=== PATIENT | male | born 2000 | race Caucasian/White ===

== ENCOUNTER 2020-03-14 00:26 | Observation (INO) | payer MEDICAID, SELFPAY ==
[2020-03-14] VITALS (9 sets, daily range): BP systolic 97–147; BP diastolic 46–110; PULSE 108–139; RESP 18–26; TEMP 36.6–37.1; O2SAT 92–98; BMI 25.8
--- NOTE | 2020-03-14 00:46 | PC.NURSE ---
Patient blood glucose is 319, nurse and BEAMING MACHINE OPERATOR are aware.
[2020-03-14 00:48] LABS: Glucose Point of Care 319 mg/dL (70-110)
--- NOTE | 2020-03-14 01:04 | ED_ITS ---
Documented by User: CA Altman 03/14/20 03:04 HPI - General Adult General: Chief complaint: General Medical Stated complaint: high blood sugar Time Seen by Provider: 03/14/20 00:38 Source: patient and family (mother) Mode of arrival: ambulatory Limitations: physical limitation and other (history of cerebral palsy) History of Present Illness: HPI narrative: 19-year-old male presents to the emergency department with his mother, he is wheelchair-bound, cerebral palsy from . He currently resides in a care home. His mother reports she received a phone call at 10:30 PM sincere stating Geremias's blood sugar was 513. She was advised to bring her to the emergency department as he does not have history of diabetes. She does state 1 month history of weight loss, increased thirst with urination which prompted a visit to his primary care's office today. Blood was drawn with critical results called to the provider. Reports increased agitation with placement on medication for anxiety approximately 8 months ago, Seroquel. She reports he cannot drink enough. She states experienced diarrhea past several days but none today. She denies fever or chills. Associated symptoms: Reports no associated symptoms; Deny chest pain, diaphoresis, dyspnea, headache(s), nausea, rash, palpitations or vomiting Treatments prior to arrival: none Review of Systems General: Reports: 10 or more systems reviewed and unremarkable except in HPI and below Const: Denies: fever(s), chills or diaphoresis Eyes: Denies: blurry vision or eye redness ENMT: Denies: throat pain, dental pain or disequilibrium Card: Denies: chest pain, palpitations or irregular heart rhythm Resp: Denies: dyspnea, productive cough, non-productive cough or wheezing GI: Denies: abdominal pain, nausea or vomiting : Reports: urinary frequency; Denies: dysuria Musc: Reports: muscle weakness (chronic); Denies: neck pain, back pain, joint pain, joint swelling or muscle cramps Skin/Breast: Denies: rash or pruritus Neuro: Reports: lack of coordination, difficulty walking and difficulty communicating thoughts; Denies: headache(s), weakness in extremities or behavioral changes Psych: Reports: anxiety and mood swings Brain/Lymph: Denies: easy bruising PFS ED PFSH: Medical History (Updated 03/14/20 @ 02:53 by CA Altman) Cerebral palsy Seizure disorder Severe mental handicap Wheelchair bound Surgical History (Updated 03/14/20 @ 01:14 by CA Altman) History of tonsillectomy and adenoidectomy Social History (Updated 03/14/20 @ 01:14 by CA Altman) Second hand smoke exposure: No Alcohol intake: never Substance/Drug Use: never Adopted: No Caregiver/support person: Yes Lives independently: No Household members: other Housing: Assisted Living Facility Physical Exam Const: COMMON NORMALS: no acute distress, healthy appearing, alert and well nourished EXAM LIMITATIONS: altered mental status, behavioral limitations and language barrier GENERAL APPEARANCE: cooperative, comfortable, well kempt, well developed and anxious ORIENTATION/CONSCIOUSNESS: Yes awake HENMT: COMMON NORMALS: normocephalic, atraumatic and Normal external nose present HEAD & SCALP: normal to inspection, normocephalic and atraumatic FACE & SINUS: normal facial exam and face symmetric NOSE: Normal external nose present MOUTH: moist mucous membranes abnormal Details: cracked THROAT: posterior oropharynx normal Eye: COMMON NORMALS: Equal, round and reactive pupils present and EOMs intact bilaterally GENERAL EYE: appearance normal, both eyes and all related structures PUPIL: Yes Equal, round and reactive pupils present Neck/C-Spine: COMMON NORMALS: full ROM, no lymphadenopathy and no meningeal signs GENERAL: Yes normal visual inspection and Yes trachea midline CERVICAL SPINE: Yes cervical ROM normal Lymph: LYMPHATIC: no lymphadenopathy noted Chest: COMMONS NORMALS: normal inspection of the chest and normal palpation of entire chest wall Resp: COMMON NORMALS: normal respiratory effort, No retractions, No use of accessory muscles and clear to auscultation bilaterally EFFORT & INSPECTION: No abnormal respiratory pattern, No labored and No audible wheezes AUSCULTATION: clear to auscultation bilaterally Cardio: COMMON NORMALS: regular rate, regular rhythm, S1 normal heart sound present, S2 normal heart sound present and Peripheral pulses 2+ throughout RATE: regular rate RHYTHM: regular rhythm HEART SOUNDS: S1 normal heart sound present and S2 normal heart sound present PERIPHERAL PULSES: Peripheral pulses 2+ throughout GI: COMMON NORMALS: Normal to inspection, nondistended, normoactive bowel sounds present, Soft to palpation and non-tender INSPECTION: Yes normal to inspection, No abdominal wall ecchymosis, No central obesity and No visible herniation AUSCULTATION: Yes normoactive bowel sounds PALPATION: Yes Soft to palpation : COMMON NORMALS: Yes no CVA tenderness BLADDER/KIDNEY EXAM: Yes no CVA tenderness Back/Pelvis: COMMON NORMALS: no CVA tenderness and thoracic and lumbar spine normal to inspection Extremity: COMMON NORMALS: normal to inspection, capillary refill normal, no calf tenderness and no pedal edema GENERAL: Yes normal exam except as noted Neuro: SENSORIUM/ORIENTATION: Yes alert MENINGEAL SIGNS: Yes no meningeal signs MOTOR EXAM: 5/5 motor strength present throughout Psych: APPEARANCE: Yes grossly normal and Yes well kempt ACTIVITY/MOTOR BEHAVIOR: Yes appropriate eye contact SPEECH: Yes incoherent Skin: COMMON NORMALS: no rashes or lesions noted and turgor normal GENERAL SKIN EXAM: no rashes or lesions noted and turgor normal Course Vital Signs: Vital signs: Vital Signs Pulse Rate 139 H 03/14/20 00:32 Respiratory Rate 18 03/14/20 00:32 Blood Pressure 97/76 03/14/20 00:32 Pulse Oximetry 98 03/14/20 00:32 MDM - General Adult 2 MDM Narrative: Medical decision making narrative: 19-year-old male patient with cerebral palsy, severe MR presents to the emergency department with new onset diabetes. He has exhibited weight loss, polyuria and polydipsia for approximately 1 month. Blood sugar obtain from his primary care's office today noted to be 513. Upon arrival to the ED, glucose 319. Ketones negative, anion gap 23, CO2 18, ABG with pH 7.53 metabolic alkalosis. Lips are very dry, he appears dehydrated. He has exhibited diarrhea past several days but none today. Has history of seizure disorder, no seizures noted valproic acid level within normal limits. He was received IV fluid here in the ED for hydration therapy. normal saline. Case is discussed Dr. Frye, transfer of care patient will require admission due to dehydration and new onset diabetes. Patient does reside in a long-term long term. Lab Data: Labs: Lab Results 03/14/20 03/14/20 03/14/20 Range/Units 00:44 01:10 01:10 WBC 10.8 (4.5-13.0) 10^3/ uL RBC 5.54 H (4.1-5.3) 10^6/u L Hgb 16.2 (11.7-16.6) g/dL Hct 46.9 (42.0-52.0) % MCV 84.7 (80-94) fL MCH 29.2 (28.0-34.0) pg MCHC 34.5 (30.0-36.0) g/dL RDW 13.3 (12.1-15.1) % Plt Count 222 (130-400) 10^3/c mm MPV 11.1 H (7.4-10.4) fL Neut % (Auto) 47.9 % Lymph % (Auto) 40.5 % Dent % (Auto) 10.0 % Eos % (Auto) 0.9 % Baso % (Auto) 0.5 % Neut # (Auto) 5.15 (1.8-8.0) 10^3/u L Lymph # (Auto) 4.4 (1.5-6.5) 10^3/u L Dent # (Auto) 1.1 H (0.2-0.9) 10^3/u L Eos # (Auto) 0.1 (0.0-0.8) 10^3/u L Baso # (Auto) 0.1 (0.0-0.1) 10^3/u L Nucleated RBC % (a uto) 0 % Nucleated RBCs # 0.0 /100WBC Specimen Type Sample Site ABG pH (7.35-7.45) ABG pCO2 (35-45) mmHg ABG pO2 (80.0-100.0) mmH g ABG HCO3 (22-26) mmol/L ABG O2 Saturation ABG Base Excess (-2.0-2.0) mmol/ L Jonathan Test A-a O2 Gradient (5-10) mmHg Hematocrit (42-52) % Hgb O2 Saturation (95-100) % Carboxyhemoglobin (0.4-20.1) %THgb Methemoglobin (0.4-1.5) % Total Hemoglobin (14-18) g/dL Ionized Calcium (1.1-1.4) mmol/L O2 Delivery Device FiO2 % Indirect Sales Representative ID Sodium 132 L (136-145) mmol/L Potassium 4.0 (3.5-5.1) mmol/L Chloride 95 L (98-107) mmol/L Carbon Dioxide 18 L (22-29) mmol/L Anion Gap 23.0 H (5-19) BUN 10 (6-20) mg/dL Creatinine 0.7 (0.7-1.2) mg/dL GFR Calculation 145.3 H (90-130) mL/min Glucose 326 H (65-115) mg/dL POC Glucose 319 H (70-110) mg/dL Calculated Osmolal ity 286 (285-295) mOsm/k g Calcium 10.7 H (8.5-10.5) mg/dL Total Bilirubin 0.6 (0.15-1.2) mg/dL AST 16 (0-40) U/L ALT 24 (0-41) U/L Alkaline Phosphata se 106 (40-130) IU/L Total Protein 7.3 (6.6-8.7) g/dL Albumin 4.4 (3.5-5.2) g/dL Globulin 2.9 (1.3-4.6) g/dL Urine Color (Yellow) Urine Appearance (CLEAR) Urine pH (5-7) Ur Specific Gravit y (1.005-1.030) Urine Protein (Negative) Urine Glucose (UA) (Normal) Urine Ketones (Negative) Urine Blood (Negative) Urine Nitrate (Negative) Urine Bilirubin (Negative) Urine Urobilinogen (Negative) mg/dL Ur Leukocyte Cyndie ase (Negative) Urine RBC (0-2) /hpf Urine WBC (0-5) /hpf Ur Squamous Epith Cells (0-5) /hpf Amorphous Sediment /hpf Urine Bacteria (NONE) /hpf Valproic Acid (50-100) ug/mL Serum Ketones (Negative) 03/14/20 03/14/20 03/14/20 Range/Units 01:10 01:10 01:22 WBC (4.5-13.0) 10^3/ uL RBC (4.1-5.3) 10^6/u L Hgb (11.7-16.6) g/dL Hct (42.0-52.0) % MCV (80-94) fL MCH (28.0-34.0) pg MCHC (30.0-36.0) g/dL RDW (12.1-15.1) % Plt Count (130-400) 10^3/c mm MPV (7.4-10.4) fL Neut % (Auto) % Lymph % (Auto) % Dent % (Auto) % Eos % (Auto) % Baso % (Auto) % Neut # (Auto) (1.8-8.0) 10^3/u L Lymph # (Auto) (1.5-6.5) 10^3/u L Dent # (Auto) (0.2-0.9) 10^3/u L Eos # (Auto) (0.0-0.8) 10^3/u L Baso # (Auto) (0.0-0.1) 10^3/u L Nucleated RBC % (a uto) % Nucleated RBCs # /100WBC Specimen Type Arterial Sample Site Brachial, right ABG pH 7.53 H (7.35-7.45) ABG pCO2 24.6 L (35-45) mmHg ABG pO2 70.3 L (80.0-100.0) mmH g ABG HCO3 20.4 L (22-26) mmol/L ABG O2 Saturation 96.8 ABG Base Excess -0.4 (-2.0-2.0) mmol/ L Jonathan Test N/a A-a O2 Gradient 6.2 (5-10) mmHg Hematocrit 50.0 (42-52) % Hgb O2 Saturation 95.3 (95-100) % Carboxyhemoglobin 0.9 (0.4-20.1) %THgb Methemoglobin 0.6 (0.4-1.5) % Total Hemoglobin 16.3 (14-18) g/dL Ionized Calcium 1.2 (1.1-1.4) mmol/L O2 Delivery Device Room air FiO2 21.0 % Indirect Sales Representative ID Jlg Sodium 135.0 (136-145) mmol/L Potassium 3.9 (3.5-5.1) mmol/L Chloride (98-107) mmol/L Carbon Dioxide (22-29) mmol/L Anion Gap (5-19) BUN (6-20) mg/dL Creatinine (0.7-1.2) mg/dL GFR Calculation (90-130) mL/min Glucose 345.0 H (65-115) mg/dL POC Glucose (70-110) mg/dL Calculated Osmolal ity (285-295) mOsm/k g Calcium (8.5-10.5) mg/dL Total Bilirubin (0.15-1.2) mg/dL AST (0-40) U/L ALT (0-41) U/L Alkaline Phosphata se (40-130) IU/L Total Protein (6.6-8.7) g/dL Albumin (3.5-5.2) g/dL Globulin (1.3-4.6) g/dL Urine Color (Yellow) Urine Appearance (CLEAR) Urine pH (5-7) Ur Specific Gravit y (1.005-1.030) Urine Protein (Negative) Urine Glucose (UA) (Normal) Urine Ketones (Negative) Urine Blood (Negative) Urine Nitrate (Negative) Urine Bilirubin (Negative) Urine Urobilinogen (Negative) mg/dL Ur Leukocyte Cyndie ase (Negative) Urine RBC (0-2) /hpf Urine WBC (0-5) /hpf Ur Squamous Epith Cells (0-5) /hpf Amorphous Sediment /hpf Urine Bacteria (NONE) /hpf Valproic Acid 66.0 (50-100) ug/mL Serum Ketones Negative (Negative) 03/14/20 03/14/20 Range/Units 02:14 02:36 WBC (4.5-13.0) 10^3/ uL RBC (4.1-5.3) 10^6/u L Hgb (11.7-16.6) g/dL Hct (42.0-52.0) % MCV (80-94) fL MCH (28.0-34.0) pg MCHC (30.0-36.0) g/dL RDW (12.1-15.1) % Plt Count (130-400) 10^3/c mm MPV (7.4-10.4) fL Neut % (Auto) % Lymph % (Auto) % Dent % (Auto) % Eos % (Auto) % Baso % (Auto) % Neut # (Auto) (1.8-8.0) 10^3/u L Lymph # (Auto) (1.5-6.5) 10^3/u L Dent # (Auto) (0.2-0.9) 10^3/u L Eos # (Auto) (0.0-0.8) 10^3/u L Baso # (Auto) (0.0-0.1) 10^3/u L Nucleated RBC % (a uto) % Nucleated RBCs # /100WBC Specimen Type Sample Site ABG pH (7.35-7.45) ABG pCO2 (35-45) mmHg ABG pO2 (80.0-100.0) mmH g ABG HCO3 (22-26) mmol/L ABG O2 Saturation ABG Base Excess (-2.0-2.0) mmol/ L Jonathan Test A-a O2 Gradient (5-10) mmHg Hematocrit (42-52) % Hgb O2 Saturation (95-100) % Carboxyhemoglobin (0.4-20.1) %THgb Methemoglobin (0.4-1.5) % Total Hemoglobin (14-18) g/dL Ionized Calcium (1.1-1.4) mmol/L O2 Delivery Device FiO2 % Indirect Sales Representative ID Sodium (136-145) mmol/L Potassium (3.5-5.1) mmol/L Chloride (98-107) mmol/L Carbon Dioxide (22-29) mmol/L Anion Gap (5-19) BUN (6-20) mg/dL Creatinine (0.7-1.2) mg/dL GFR Calculation (90-130) mL/min Glucose (65-115) mg/dL POC Glucose 300 H (70-110) mg/dL Calculated Osmolal ity (285-295) mOsm/k g Calcium (8.5-10.5) mg/dL Total Bilirubin (0.15-1.2) mg/dL AST (0-40) U/L ALT (0-41) U/L Alkaline Phosphata se (40-130) IU/L Total Protein (6.6-8.7) g/dL Albumin (3.5-5.2) g/dL Globulin (1.3-4.6) g/dL Urine Color Yellow (Yellow) Urine Appearance Clear (CLEAR) Urine pH 6 (5-7) Ur Specific Gravit y 1.005 (1.005-1.030) Urine Protein Neg (Negative) Urine Glucose (UA) 4+ H (Normal) Urine Ketones 2+ H (Negative) Urine Blood 2+ H (Negative) Urine Nitrate Negative (Negative) Urine Bilirubin Neg (Negative) Urine Urobilinogen Norm (Negative) mg/dL Ur Leukocyte Cyndie ase Negative (Negative) Urine RBC 15-25 H (0-2) /hpf Urine WBC 0-4 H (0-5) /hpf Ur Squamous Epith Cells 0-4 H (0-5) /hpf Amorphous Sediment 1+ /hpf Urine Bacteria Trace (NONE) /hpf Valproic Acid (50-100) ug/mL Serum Ketones (Negative) Discharge Plan Discharge Patient Disposition: Placed in Observation Clinical Impression: Diabetes mellitus, new onset, Acute dehydration Coding Level of Care Code ED Jewelry Bearing Maker for Chg Fwd Exam Comprehensive Documented by User: Andreas Frye DO 03/14/20 03:07 HPI - General Adult General: Chief complaint: General Medical Stated complaint: high blood sugar Time Seen by Provider: 03/14/20 00:38 [facility] ED PFSH: Medical History (Updated 03/14/20 @ 02:53 by CA Altman) Cerebral palsy Seizure disorder Severe mental handicap Wheelchair bound Surgical History (Updated 03/14/20 @ 01:14 by CA Altman) History of tonsillectomy and adenoidectomy Social History (Updated 03/14/20 @ 01:14 by CA Altman) Second hand smoke exposure: No Alcohol intake: never Substance/Drug Use: never Adopted: No Caregiver/support person: Yes Lives independently: No Household members: other Housing: Assisted Living Facility Course Vital Signs: Vital signs: Vital Signs Pulse Rate 139 H 03/14/20 00:32 Respiratory Rate 18 03/14/20 00:32 Blood Pressure 97/76 03/14/20 00:32 Pulse Oximetry 98 03/14/20 00:32 MDM - General Adult MDM Narrative: Medical decision making narrative: 19-year-old male checked out to me by MARLI De La Rosa. I agree with her history, evaluation, and treatment. This patient is experiencing new onset diabetes. There is no evidence of DKA at this point. He is dehydrated. In a normal circumstance, this patient may be able to go home, given the circumstances with developmental delay, cerebral palsy, and dehydration I think the better choice is to observe the patient, hydrate, and send them home with a clear regimen of medication. Lab Data: Labs: Lab Results 03/14/20 03/14/20 03/14/20 Range/Units 00:44 01:10 01:10 WBC 10.8 (4.5-13.0) 10^3/ uL RBC 5.54 H (4.1-5.3) 10^6/u L Hgb 16.2 (11.7-16.6) g/dL Hct 46.9 (42.0-52.0) % MCV 84.7 (80-94) fL MCH 29.2 (28.0-34.0) pg MCHC 34.5 (30.0-36.0) g/dL RDW 13.3 (12.1-15.1) % Plt Count 222 (130-400) 10^3/c mm MPV 11.1 H (7.4-10.4) fL Neut % (Auto) 47.9 % Lymph % (Auto) 40.5 % Dent % (Auto) 10.0 % Eos % (Auto) 0.9 % Baso % (Auto) 0.5 % Neut # (Auto) 5.15 (1.8-8.0) 10^3/u L Lymph # (Auto) 4.4 (1.5-6.5) 10^3/u L Dent # (Auto) 1.1 H (0.2-0.9) 10^3/u L Eos # (Auto) 0.1 (0.0-0.8) 10^3/u L Baso # (Auto) 0.1 (0.0-0.1) 10^3/u L Nucleated RBC % (a uto) 0 % Nucleated RBCs # 0.0 /100WBC Specimen Type Sample Site ABG pH (7.35-7.45) ABG pCO2 (35-45) mmHg ABG pO2 (80.0-100.0) mmH g ABG HCO3 (22-26) mmol/L ABG O2 Saturation ABG Base Excess (-2.0-2.0) mmol/ L Jonathan Test A-a O2 Gradient (5-10) mmHg Hematocrit (42-52) % Hgb O2 Saturation (95-100) % Carboxyhemoglobin (0.4-20.1) %THgb Methemoglobin (0.4-1.5) % Total Hemoglobin (14-18) g/dL Ionized Calcium (1.1-1.4) mmol/L O2 Delivery Device FiO2 % Indirect Sales Representative ID Sodium 132 L (136-145) mmol/L Potassium 4.0 (3.5-5.1) mmol/L Chloride 95 L (98-107) mmol/L Carbon Dioxide 18 L (22-29) mmol/L Anion Gap 23.0 H (5-19) BUN 10 (6-20) mg/dL Creatinine 0.7 (0.7-1.2) mg/dL GFR Calculation 145.3 H (90-130) mL/min Glucose 326 H (65-115) mg/dL POC Glucose 319 H (70-110) mg/dL Calculated Osmolal ity 286 (285-295) mOsm/k g Calcium 10.7 H (8.5-10.5) mg/dL Total Bilirubin 0.6 (0.15-1.2) mg/dL AST 16 (0-40) U/L ALT 24 (0-41) U/L Alkaline Phosphata se 106 (40-130) IU/L Total Protein 7.3 (6.6-8.7) g/dL Albumin 4.4 (3.5-5.2) g/dL Globulin 2.9 (1.3-4.6) g/dL Urine Color (Yellow) Urine Appearance (CLEAR) Urine pH (5-7) Ur Specific Gravit y (1.005-1.030) Urine Protein (Negative) Urine Glucose (UA) (Normal) Urine Ketones (Negative) Urine Blood (Negative) Urine Nitrate (Negative) Urine Bilirubin (Negative) Urine Urobilinogen (Negative) mg/dL Ur Leukocyte Cyndie ase (Negative) Urine RBC (0-2) /hpf Urine WBC (0-5) /hpf Ur Squamous Epith Cells (0-5) /hpf Amorphous Sediment /hpf Urine Bacteria (NONE) /hpf Valproic Acid (50-100) ug/mL Serum Ketones (Negative) 02/06/21 02/06/21 02/06/21 Range/Units 01:10 01:10 01:22 WBC (4.5-13.0) 10^3/ uL RBC (4.1-5.3) 10^6/u L Hgb (11.7-16.6) g/dL Hct (42.0-52.0) % MCV (80-94) fL MCH (28.0-34.0) pg MCHC (30.0-36.0) g/dL RDW (12.1-15.1) % Plt Count (130-400) 10^3/c mm MPV (7.4-10.4) fL Neut % (Auto) % Lymph % (Auto) % Dent % (Auto) % Eos % (Auto) % Baso % (Auto) % Neut # (Auto) (1.8-8.0) 10^3/u L Lymph # (Auto) (1.5-6.5) 10^3/u L Dent # (Auto) (0.2-0.9) 10^3/u L Eos # (Auto) (0.0-0.8) 10^3/u L Baso # (Auto) (0.0-0.1) 10^3/u L Nucleated RBC % (a uto) % Nucleated RBCs # /100WBC Specimen Type Arterial Sample Site Brachial, right ABG pH 7.53 H (7.35-7.45) ABG pCO2 24.6 L (35-45) mmHg ABG pO2 70.3 L (80.0-100.0) mmH g ABG HCO3 20.4 L (22-26) mmol/L ABG O2 Saturation 96.8 ABG Base Excess -0.4 (-2.0-2.0) mmol/ L Jonathan Test N/a A-a O2 Gradient 6.2 (5-10) mmHg Hematocrit 50.0 (42-52) % Hgb O2 Saturation 95.3 (95-100) % Carboxyhemoglobin 0.9 (0.4-20.1) %THgb Methemoglobin 0.6 (0.4-1.5) % Total Hemoglobin 16.3 (14-18) g/dL Ionized Calcium 1.2 (1.1-1.4) mmol/L O2 Delivery Device Room air FiO2 21.0 % Indirect Sales Representative ID Jlg Sodium 135.0 (136-145) mmol/L Potassium 3.9 (3.5-5.1) mmol/L Chloride (98-107) mmol/L Carbon Dioxide (22-29) mmol/L Anion Gap (5-19) BUN (6-20) mg/dL Creatinine (0.7-1.2) mg/dL GFR Calculation (90-130) mL/min Glucose 345.0 H (65-115) mg/dL POC Glucose (70-110) mg/dL Calculated Osmolal ity (285-295) mOsm/k g Calcium (8.5-10.5) mg/dL Total Bilirubin (0.15-1.2) mg/dL AST (0-40) U/L ALT (0-41) U/L Alkaline Phosphata se (40-130) IU/L Total Protein (6.6-8.7) g/dL Albumin (3.5-5.2) g/dL Globulin (1.3-4.6) g/dL Urine Color (Yellow) Urine Appearance (CLEAR) Urine pH (5-7) Ur Specific Gravit y (1.005-1.030) Urine Protein (Negative) Urine Glucose (UA) (Normal) Urine Ketones (Negative) Urine Blood (Negative) Urine Nitrate (Negative) Urine Bilirubin (Negative) Urine Urobilinogen (Negative) mg/dL Ur Leukocyte Cyndie ase (Negative) Urine RBC (0-2) /hpf Urine WBC (0-5) /hpf Ur Squamous Epith Cells (0-5) /hpf Amorphous Sediment /hpf Urine Bacteria (NONE) /hpf Valproic Acid 66.0 (50-100) ug/mL Serum Ketones Negative (Negative) 03/14/20 03/14/20 Range/Units 02:14 02:36 WBC (4.5-13.0) 10^3/ uL RBC (4.1-5.3) 10^6/u L Hgb (11.7-16.6) g/dL Hct (42.0-52.0) % MCV (80-94) fL MCH (28.0-34.0) pg MCHC (30.0-36.0) g/dL RDW (12.1-15.1) % Plt Count (130-400) 10^3/c mm MPV (7.4-10.4) fL Neut % (Auto) % Lymph % (Auto) % Dent % (Auto) % Eos % (Auto) % Baso % (Auto) % Neut # (Auto) (1.8-8.0) 10^3/u L Lymph # (Auto) (1.5-6.5) 10^3/u L Dent # (Auto) (0.2-0.9) 10^3/u L Eos # (Auto) (0.0-0.8) 10^3/u L Baso # (Auto) (0.0-0.1) 10^3/u L Nucleated RBC % (a uto) % Nucleated RBCs # /100WBC Specimen Type Sample Site ABG pH (7.35-7.45) ABG pCO2 (35-45) mmHg ABG pO2 (80.0-100.0) mmH g ABG HCO3 (22-26) mmol/L ABG O2 Saturation ABG Base Excess (-2.0-2.0) mmol/ L Jonathan Test A-a O2 Gradient (5-10) mmHg Hematocrit (42-52) % Hgb O2 Saturation (95-100) % Carboxyhemoglobin (0.4-20.1) %THgb Methemoglobin (0.4-1.5) % Total Hemoglobin (14-18) g/dL Ionized Calcium (1.1-1.4) mmol/L O2 Delivery Device FiO2 % Indirect Sales Representative ID Sodium (136-145) mmol/L Potassium (3.5-5.1) mmol/L Chloride (98-107) mmol/L Carbon Dioxide (22-29) mmol/L Anion Gap (5-19) BUN (6-20) mg/dL Creatinine (0.7-1.2) mg/dL GFR Calculation (90-130) mL/min Glucose (65-115) mg/dL POC Glucose 300 H (70-110) mg/dL Calculated Osmolal ity (285-295) mOsm/k g Calcium (8.5-10.5) mg/dL Total Bilirubin (0.15-1.2) mg/dL AST (0-40) U/L ALT (0-41) U/L Alkaline Phosphata se (40-130) IU/L Total Protein (6.6-8.7) g/dL Albumin (3.5-5.2) g/dL Globulin (1.3-4.6) g/dL Urine Color Yellow (Yellow) Urine Appearance Clear (CLEAR) Urine pH 6 (5-7) Ur Specific Gravit y 1.005 (1.005-1.030) Urine Protein Neg (Negative) Urine Glucose (UA) 4+ H (Normal) Urine Ketones 2+ H (Negative) Urine Blood 2+ H (Negative) Urine Nitrate Negative (Negative) Urine Bilirubin Neg (Negative) Urine Urobilinogen Norm (Negative) mg/dL Ur Leukocyte Cyndie ase Negative (Negative) Urine RBC 15-25 H (0-2) /hpf Urine WBC 0-4 H (0-5) /hpf Ur Squamous Epith Cells 0-4 H (0-5) /hpf Amorphous Sediment 1+ /hpf Urine Bacteria Trace (NONE) /hpf Valproic Acid (50-100) ug/mL Serum Ketones (Negative) Discharge Plan Discharge Patient Disposition: Placed in Observation Clinical Impression: Diabetes mellitus, new onset, Acute dehydration Coding Level of Care Code ED Jewelry Bearing Maker for Chg Fwd Exam Comprehensive
[2020-03-14 01:19] LABS: Basophils # 0.1 10^3/uL (0.0-0.1); Basophils % 0.5 %; Eosinophils # 0.1 10^3/uL (0.0-0.8); Eosinophils % 0.9 %; Hematocrit 46.9 % (42.0-52.0); Hemoglobin 16.2 g/dL (11.7-16.6); Lymphocytes # 4.4 10^3/uL (1.5-6.5); Lymphocytes % 40.5 %; Mean Corpuscular HGB Conc 34.5 g/dL (30.0-36.0); Mean Corpuscular Hemoglobin 29.2 pg (28.0-34.0); Mean Corpuscular Volume 84.7 fL (80-94); Mean Platelet Volume 11.1 fL (7.4-10.4); Monocytes # 1.1 10^3/uL (0.2-0.9); Neutrophils # 5.15 10^3/uL (1.8-8.0); Neutrophils % 47.9 %; Nucleated Red Blood Cells % 0 %; Platelet Count 222 10^3/cmm (130-400); Red Blood Count 5.54 10^6/uL (4.1-5.3); Red Cell Distribution Width 13.3 % (12.1-15.1); White Blood Count 10.8 10^3/uL (4.5-13.0)
[2020-03-14 01:27] LABS: Ketone (Acetest) Serum Negative (Negative)
[2020-03-14 01:35] LABS: Alanine Aminotransferase 24 U/L (0-41); Albumin Level 4.4 g/dL (3.5-5.2); Alkaline Phosphatase 106 IU/L (40-130); Aspartate Amino Transferase 16 U/L (0-40); Blood Urea Nitrogen 10 mg/dL (6-20); Calcium 10.7 mg/dL (8.5-10.5); Carbon Dioxide 18 mmol/L (22-29); Chloride 95 mmol/L (98-107); Globulin 2.9 g/dL (1.3-4.6); Glomerular Filtration Rate 145.3 mL/min (90-130); Glucose 326 mg/dL (65-115); Osmolality Calculated 286 mOsm/kg (285-295); Sodium 132 mmol/L (136-145); Total Bilirubin 0.6 mg/dL (0.15-1.2); Total Protein 7.3 g/dL (6.6-8.7)
[2020-03-14 01:35] LABS: ABG PCO2 24.6 mmHg (35-45); ABG PH Result 7.53 (7.35-7.45); Alveolar-Arterial Oxygen Gradi 6.2 mmHg (5-10); Base Excess ABG -0.4 mmol/L (-2.0-2.0); Blood Gas Sample Site Brachial, right; Blood Gas Sample Type Arterial; Carboxyhemoglobin 0.9 %THgb (0.4-20.1); HCO3 ABG 20.4 mmol/L (22-26); HGB O2 Sat 95.3 % (95-100); Ionized Calcium Level - ABG 1.2 mmol/L (1.1-1.4); Methemoglobin 0.6 % (0.4-1.5); Oxygen Device ROOM AIR; Oxygen Saturation ABG 96.8; PO2 ABG 70.3 mmHg (80.0-100.0); Potassium Level - ABG 3.9 mmol/L (3.5-5.0); Total Hemoglobin 16.3 g/dL (14-18)
[2020-03-14] MEDS: sodium chloride 0.9% 1,000 ML 999 ML IV ×2 (01:51→03:30)
[2020-03-14 02:35] LABS: Add Urine Microscopic? YES; Bilirubin Urine Neg (Negative); Blood Urine 2+ (Negative); Glucose Urine UA 4+ (Normal); Ketones Urine 2+ (Negative); Leukocyte Esterase Urine Negative (Negative); Nitrate Urine Negative (Negative); Protein Urine Neg (Negative); Specific Gravity, Urine 1.005 (1.005-1.030); Urine Appearance Clear (CLEAR); Urine Color Yellow (Yellow); Urobilinogen Urine Norm (Negative); pH Urine 6 (5-7)
[2020-03-14 02:37] LABS: Add Urine Culture? Yes; Amorphous Sediment Urine 1+ /hpf; Bacteria Urine TRACE /hpf; RBC Urine 15-25 /hpf (0-2); Squamous Epithelial Cell Urine 0-4 /hpf (0-5); WBC Urine 0-4 /hpf (0-5)
[2020-03-14 02:40] LABS: Glucose Point of Care 300 mg/dL (70-110)
--- NOTE | 2020-03-14 03:25 | PM.HP ---
Providers/Chief Complaint Admitting Physician: Rosales Lawrence Primary Care Provider: MARLI Jarquin Chief Complaint: high blood sugar History of Present Illness Geremias Garduno is a 19 year old male with a history of cerebral palsy and seizure disorder brought to the emergency department by his mother because of elevated blood sugar reading. Mother states that she received a call from his PCPs office that patient blood sugar is 513. She was advised to bring him to the emergency department for further evaluation. Mother reports patient has been drinking a lot more water and more agitated. His blood sugar was 319 on arrival. Blood work showed metabolic acidosis and hypercalcemia. Patient is suspected to be dehydrated. He is placed under observation for further management of his blood sugar and also for IV hydration. Review of Systems Narrative: According to the mother, no diarrhea, no nausea or vomiting, no fever. I am not able to obtain a full review of systems due to cerebral palsy. Medications/Allergies Home Medications Medication Instructions Recorded Confirmed Last Taken Type buspirone 15 mg PO BID 03/14/20 03/14/20 1 Day Ago History ~03/13/20 calcium phosphate-vitamin D3 600 tab PO BID 03/14/20 03/14/20 1 Day Ago History [Calcium Adult (calcium phos)] ~03/13/20 divalproex 250 mg PO BEDTIME 03/14/20 03/14/20 1 Day Ago History ~03/13/20 divalproex 500 mg PO BID 03/14/20 03/14/20 1 Day Ago History ~03/13/20 docusate sodium [DOK] 100 mg PO BID 03/14/20 03/14/20 1 Day Ago History ~03/13/20 levothyroxine 50 mcg PO DAILY 03/14/20 03/14/20 1 Day Ago History ~03/13/20 melatonin 12 mg PO BEDTIME 03/14/20 03/14/20 Unknown History polyethylene glycol 3350 17 g PO DAILY 03/14/20 03/14/20 1 Day Ago History ~03/13/20 quetiapine 100 mg PO TID 03/14/20 03/14/20 1 Day Ago History ~03/13/20 Allergies Allergy/AdvReac Type Severity Reaction Status Date / Time No Known Allergies Allergy Verified 03/14/20 00:40 PFSH Acute PFSH: Medical History (Updated 03/14/20 @ 03:43 by Rosales Lawrence MD) Cerebral palsy Seizure disorder Severe mental handicap Wheelchair bound Surgical History (Updated 03/14/20 @ 01:14 by CA Altman) History of tonsillectomy and adenoidectomy Family History (Updated 03/14/20 @ 03:35 by Rosales Lawrence MD) Mother Diabetes Type I Social History (Updated 03/14/20 @ 01:14 by CA Altman) Second hand smoke exposure: No Alcohol intake: never Substance/Drug Use: never Adopted: No Caregiver/support person: Yes Lives independently: No Household members: other Housing: Assisted Living Facility Vitals/I&O/Wt Last Vital Signs Pulse 139 H 03/14/20 00:32 Resp 18 03/14/20 00:32 BP 97/76 03/14/20 00:32 Pulse Ox 98 03/14/20 00:32 Weight last 48 hrs Weight 79.379 kg Physical Exam Const: COMMON NORMALS: no acute distress, alert and well nourished EXAM LIMITATIONS: behavioral limitations GENERAL APPEARANCE: cooperative and comfortable HENMT: COMMON NORMALS: normocephalic and atraumatic Eye: COMMON NORMALS: Equal, round and reactive pupils present, EOMs intact bilaterally, conjunctivae normal and no scleral icterus Neck/C-Spine: COMMON NORMALS: no lymphadenopathy, supple and Thyroid normal Lymph: LYMPHATIC: no lymphadenopathy noted Chest: COMMONS NORMALS: normal inspection of the chest and normal palpation of entire chest wall Resp: COMMON NORMALS: normal respiratory effort, No retractions, No use of accessory muscles and clear to auscultation bilaterally Cardio: COMMON NORMALS: no JVD, regular rate, regular rhythm, S1 normal heart sound present and S2 normal heart sound present GI: COMMON NORMALS: Normal to inspection, nondistended, normoactive bowel sounds present, Soft to palpation, non-tender, No hepatosplenomegaly present and no bruits : COMMON NORMALS: Yes no CVA tenderness Back/Pelvis: COMMON NORMALS: thoraco-lumbar ROM normal Extremity: COMMON NORMALS: no clubbing, cyanosis or edema and no pedal edema Neuro: COMMON NORMALS: moves all extremities and no focal motor deficits Psych: COMMON NORMALS: cooperative ATTENTION/CONCENTRATION: Yes attention grossly impaired Skin: COMMON NORMALS: no rashes or lesions noted, turgor normal and no jaundice Data : 03/14/20 04:14 03/14/20 04:14 A&P Assessment and plan (1) Acute dehydration: Status: Acute (2) Diabetes mellitus, new onset: Status: Acute (3) Cerebral palsy: Status: Acute (4) Seizure disorder: Status: Acute Additional A&P Information Place patient under observation. Hydrate with IV normal saline Start Lantus insulin 10 units daily Insulin sliding scale Mother states patient hemoglobin A1c is 11. He will need insulin therapy for now. Monitor BMP. Continue other home medications. Attestations Medical Necessity Statement*: Patient will need to be hospitalized for IV fluid and further management of new onset diabetes and dehydration. He is expected to spend less than 2 midnights. Time Spent in Patient Care: 55 minutes. Coding Level of Care Code Acute Rat Breeder for g Fwd Exam Comprehensive Diagnoses Acute dehydration E86.0 Diabetes mellitus, new onset E11.9 Cerebral palsy G80.9 Seizure disorder G40.909
[2020-03-14 03:38] LABS: Glucose Point of Care 299 mg/dL (70-110)
[2020-03-14] MEDS: enoxaparin 40 mg/0.4 mL Syringe SUBCUT (04:31)
[2020-03-14] MEDS: sodium chloride 0.9% 1,000 ML 125 ML IV ×3 (04:31→21:37)
[2020-03-14 05:29] LABS: Basophils % 0.3 %; Eosinophils # 0.1 10^3/uL (0.0-0.8); Eosinophils % 0.5 %; Hemoglobin 14.5 g/dL (11.7-16.6); Lymphocytes % 32.4 %; Mean Corpuscular Hemoglobin 29.4 pg (28.0-34.0); Mean Corpuscular Volume 89.1 fL (80-94); Monocytes % 11.3 %; Neutrophils # 5.08 10^3/uL (1.8-8.0); Neutrophils % 55.3 %; Nucleated Red Blood Cells % 0 %; Platelet Count 182 10^3/cmm (130-400); Red Blood Count 4.94 10^6/uL (4.1-5.3); Red Cell Distribution Width 13.4 % (12.1-15.1); White Blood Count 9.2 10^3/uL (4.5-13.0)
[2020-03-14 06:01] LABS: Alanine Aminotransferase 19 U/L (0-41); Alkaline Phosphatase 97 IU/L (40-130); Anion Gap 19.7 (5-19); Aspartate Amino Transferase 16 U/L (0-40); Blood Urea Nitrogen 8 mg/dL (6-20); Calcium 9.4 mg/dL (8.5-10.5); Carbon Dioxide 17 mmol/L (22-29); Chloride 103 mmol/L (98-107); Globulin 2.4 g/dL (1.3-4.6); Glomerular Filtration Rate 214.2 mL/min (90-130); Glucose 269 mg/dL (65-115); Osmolality Calculated 290 mOsm/kg (285-295); Potassium 3.7 mmol/L (3.5-5.1); Sodium 136 mmol/L (136-145); Total Bilirubin 0.5 mg/dL (0.15-1.2); Total Protein 6.4 g/dL (6.6-8.7)
[2020-03-14 06:54] LABS: Glucose Point of Care 218 mg/dL (70-110)
[2020-03-14 07:37] LABS: Glucose Point of Care 248 mg/dL (70-110)
[2020-03-14] MEDS: divalproex DR 500 mg Tablet PO ×2 (08:21→17:09)
[2020-03-14] MEDS: docusate sodium 100 mg Capsule PO ×2 (08:21→17:10)
[2020-03-14] MEDS: levothyroxine 50 mcg Tablet PO (08:21)
[2020-03-14] MEDS: quetiapine 100 mg Tablet PO ×3 (08:21→21:42)
[2020-03-14] MEDS: polyethylene glycol 3350 Pkt 17 gm PO (08:22)
[2020-03-14] MEDS: insulin glargine 100 units/1 mL 10 UNIT SUBCUT (08:27)
--- NOTE | 2020-03-14 10:13 | PC.NURSE ---
AM NOTE MOM AT SIDE - NOTED PT TO BE MR AND CP PER REPORT AND MOM - PT COOPERATIVE, YELLING OUT MAMA WILL SMILE TO STAFF
[2020-03-14 11:38] LABS: Glucose Point of Care 204 mg/dL (70-110)
--- NOTE | 2020-03-14 14:00 | P.PN_ITS ---
Subjective Subjective: Interval history: This is a 19-year-old male with history of cerebral palsy, seizures presented to the ER due to elevated blood sugar. Overnight patient was treated IV fluids insulin. Blood sugar slightly better today. Family reports that they were concerned that he might be diabetic. Limited secondary to and cognition deficits Vitals/I&O/Wt Last Vital Signs Temp 98.4 F 03/14/20 11:41 Pulse 117 H 03/14/20 11:41 Resp 20 H 03/14/20 11:41 BP 130/77 03/14/20 11:41 Pulse Ox 92 03/14/20 11:41 03/13/20 03/14/20 03/14/20 22:59 06:59 14:59 Intake Total 1959 Output Total Balance -1959 Weight last 48 hrs Weight 175 lb Physical Exam Const: ORIENTATION/CONSCIOUSNESS: Yes awake OTHER: Incomprehensible speech Neck/C-Spine: COMMON NORMALS: no JVD Resp: COMMON NORMALS: normal respiratory effort and No retractions Cardio: COMMON NORMALS: no JVD and regular rate RATE: regular rate GI: COMMON NORMALS: Normal to inspection, nondistended, normoactive bowel sounds present Extremity: OTHER: Lower extremity weakness he is in a motorized wheelchair Data : 03/14/20 04:14 03/14/20 04:14 A&P Assessment and plan (1) Diabetes mellitus, new onset: Fingerstick blood sugars better, call placed to nurse for updates Lantus and sliding scale insulin add AIC nutrition consult may benefit from endocrinology evaluation as outpatient . follow-up with PCP first Status: Acute (2) Acute dehydration: Continue IV fluids repeat labs in the morning Status: Acute (3) Cerebral palsy: Uses motorized wheelchair, limited speech Status: Acute (4) Seizure disorder: Home medications Status: Acute Attestations Medical Necessity Statement*: Geremias Garudno's hospital stay will be less than 2 midnights for diabetes Coding Level of Care Code Acute Older Adult Social Work Specialist for [facility] Fwd Diagnoses Diabetes mellitus, new onset E11.9 Acute dehydration E86.0 Cerebral palsy G80.9 Seizure disorder G40.909
[2020-03-14 15:51] LABS: Estmated Average Glucose 269
[2020-03-14 17:10] LABS: Glucose Point of Care 261 mg/dL (70-110)
--- NOTE | 2020-03-14 17:51 | PC.NURSE ---
DIABETIC EDUCATION REVIEWED DIABETIC EDUCATION WITH MOM - REVIEWED SLIDING SCALE AND HOW TO READ SCALE - HOW TO DRAW INSULIN FROM VIAL INTO SYRINGE - HOW TO INJECT INSULIN - ROTATING SITES - MOM VERBALIZES UNDERSTANDING - MOM TO GIVE PM INSULIN WITH THIS NURSE ASSIST
[2020-03-14 20:42] LABS: Glucose Point of Care 195 mg/dL (70-110)
[2020-03-14] MEDS: divalproex DR 250 mg Tablet PO (21:42)
[2020-03-15] VITALS: BP 130/74; PULSE 109; RESP 20; TEMP 36.9; O2SAT 97
[2020-03-15] MEDS: trazodone 50 mg Tablet 25 MG PO (01:36)
[2020-03-15 04:00] VITALS: BP 140/73; PULSE 107; RESP 24; TEMP 36.7; O2SAT 94
[2020-03-15] MEDS: enoxaparin 40 mg/0.4 mL Syringe SUBCUT (04:29)
[2020-03-15] MEDS: sodium chloride 0.9% 1,000 ML 125 ML IV (04:29)
[2020-03-15 04:57] LABS: Basophils % 0.4 %; Eosinophils # 0.1 10^3/uL (0.0-0.8); Eosinophils % 1.3 %; Hematocrit 43.8 % (42.0-52.0); Hemoglobin 14.6 g/dL (11.7-16.6); Lymphocytes # 3.2 10^3/uL (1.5-6.5); Lymphocytes % 34.2 %; Mean Corpuscular HGB Conc 33.3 g/dL (30.0-36.0); Mean Corpuscular Hemoglobin 29.6 pg (28.0-34.0); Mean Corpuscular Volume 88.8 fL (80-94); Mean Platelet Volume 11.1 fL (7.4-10.4); Monocytes # 1.1 10^3/uL (0.2-0.9); Monocytes % 11.5 %; Neutrophils # 4.91 10^3/uL (1.8-8.0); Neutrophils % 52.3 %; Nucleated Red Blood Cells % 0 %; Platelet Count 178 10^3/cmm (130-400); Red Blood Count 4.93 10^6/uL (4.1-5.3); White Blood Count 9.4 10^3/uL (4.5-13.0)
[2020-03-15 05:27] LABS: Alanine Aminotransferase 18 U/L (0-41); Albumin Level 3.9 g/dL (3.5-5.2); Alkaline Phosphatase 86 IU/L (40-130); Anion Gap 16.9 (5-19); Aspartate Amino Transferase 17 U/L (0-40); Blood Urea Nitrogen 5 mg/dL (6-20); Calcium 8.7 mg/dL (8.5-10.5); Carbon Dioxide 19 mmol/L (22-29); Chloride 107 mmol/L (98-107); Chol HDL Ratio 4.13 mg/dL (1.0-5.00); Cholesterol 132 mg/dL (0-200); Globulin 2.7 g/dL (1.3-4.6); Glomerular Filtration Rate 214.2 mL/min (90-130); Glucose 206 mg/dL (65-115); HDL Cholesterol 32 mg/dL (60-100); LDL Cholesterol Calculated 75 mg/dL (50-170); LDL HDL Ratio 2.34 RATIO (0.00-3.22); Magnesium 1.9 mg/dL (1.7-2.2); Osmolality Calculated 291 mOsm/kg (285-295); Phosphorus 3.6 mg/dL (2.5-4.5); Potassium 3.9 mmol/L (3.5-5.1); Sodium 139 mmol/L (136-145); Thyroid Stimulating Hormone 4.56 uIU/mL (0.27-4.20); Total Bilirubin 0.5 mg/dL (0.15-1.2); Total Protein 6.6 g/dL (6.6-8.7); Triglycerides 124 mg/dL (0-150)
[2020-03-15 06:31] LABS: Glucose Point of Care 236 mg/dL (70-110)
[2020-03-15 07:06] VITALS: BP 137/78; PULSE 95; RESP 18; TEMP 37; O2SAT 96
[2020-03-15] MEDS: polyethylene glycol 3350 Pkt 17 gm PO (08:12)
[2020-03-15] MEDS: levothyroxine 50 mcg Tablet PO (08:12)
[2020-03-15] MEDS: docusate sodium 100 mg Capsule PO (08:12)
[2020-03-15] MEDS: quetiapine 100 mg Tablet PO (08:13)
[2020-03-15] MEDS: divalproex DR 500 mg Tablet PO (08:13)
[2020-03-15] MEDS: insulin glargine 100 units/1 mL 10 UNIT SUBCUT (08:15)
[2020-03-15 10:47] LABS: Glucose Point of Care 202 mg/dL (70-110)
[2020-03-15 11:25] VITALS: BP 132/75; PULSE 105; RESP 18; TEMP 37; O2SAT 96
--- NOTE | 2020-03-15 13:02 | PC.NURSE ---
EDUCATION PER MOM - READY FOR DISCHARGE - DR SWEENEY NOTIFIED - EDUCATED MOM TO INSULIN REGIMEN AGAIN - WILL SEND HOME PAPER SLIDING SCALE, DIET EDUCATION AND ALL SCRIPTS
[2020-03-15 13:59] VITALS: BP 132/75; PULSE 105; RESP 18; TEMP 37; O2SAT 96
--- NOTE | 2020-03-16 08:59 | PC.SOCIAL ---
Called Mother to follow up on Dr Chopra concern regarding insulin medications. Mother indicates she did get the paper scripts and will take them to pharmacy today in . Updated provider Dr Bueno.
--- NOTE | 2020-03-16 12:55 | PM.DCS ---
Discharge Providers Date of Admission: 03/14/20 02:58 Date of Discharge: March 15, 2020 Attending Provider at Admission: Rosales Lawrence Attending Provider at Discharge: Vanessa Bueno MD Primary Care Provider: MARLI Jarquin Diagnoses at Discharge Discharge Diagnosis (1) Diabetes mellitus, new onset: Status: Acute (2) Acute dehydration: Status: Deleted (3) Cerebral palsy: (4) Seizure disorder: Reason for Visit Reason for Visit: high blood sugar Hospital Course Hospital Course This is a 19-year-old male with history of cerebral palsy, seizure disorder who presented to the ER with elevated blood sugars. The patient was noted to have blood sugars of 513 and was told to come to ED by PCP. Mother also noted that he has increased thirst and has been more agitated. In the ER patient was noted to have elevated blood sugars. He was admitted for suspected new onset diabetes. The patient was managed with Lantus as well as sliding scale insulin. Diabetic education was provided including insulin administration by the mother. Over the weekend radiation control worker not available. Nursing provided education. The patient was discharged with Lantus as well as sliding scale insulin. Commend to follow-up with PCP then consider endocrinology evaluation. TSH also noted to be abnormal. He is on thyroid medicine. The patient's discharge was complicated. He was discharged mother reports that they had difficulty picking up medications at pharmacy. Unfortunately pharmacy was closed when contacted. They had return to the ER. They were observed there and then discharged home. Physical Exam Const: ORIENTATION/CONSCIOUSNESS: Yes awake Resp: COMMON NORMALS: normal respiratory effort Cardio: OTHER: normal pulse GI: COMMON NORMALS: no masses INSPECTION: Yes normal to inspection Neuro: SENSORIUM/ORIENTATION: Yes other Discharge Data Vitals: Last Vital Signs Temp 98.6 F 03/15/20 13:59 Pulse 105 H 03/15/20 13:59 Resp 18 03/15/20 13:59 BP 132/75 03/15/20 13:59 Pulse Ox 96 03/15/20 13:59 Discharge Plan Discharge Patient Disposition: Home Condition: Stable Prescriptions: Continued buspirone 15 mg tablet 15 mg PO BID RF: 0 Calcium Adult (calcium phos) 250 mg-8.75 mcg (350 unit) tablet,chewable 600 tab PO BID RF: 0 divalproex 250 mg tablet,delayed release (DR/EC) 250 mg PO BEDTIME RF: 0 divalproex 500 mg tablet,delayed release (DR/EC) 500 mg PO BID RF: 0 DOK 100 mg capsule 100 mg PO BID RF: 0 levothyroxine 50 mcg tablet 50 mcg PO DAILY RF: 0 melatonin 3 mg tablet 12 mg PO BEDTIME RF: 0 polyethylene glycol 3350 17 gram/dose powder 17 g PO DAILY RF: 0 quetiapine 100 mg tablet 100 mg PO TID RF: 0 No Action Lantus U-100 Insulin 100 unit/mL Solution 12 unit SUBCUT DAILY Qty: 30 RF: 1 (DME) Contour Test Strips Strip See Rx Instructions .ROUTE .MEDSUPPLY Qty: 10 RF: 0 Novolog U-100 Insulin aspart 100 unit/mL Solution 0 unit SUBCUT WM&BEDTIME Qty: 5 RF: 1 Discharge Orders: Discharge Order (Routine); Ordered 03/15/20 Ordered By: Vanessa Bueno Referrals: Linda Faulkner, STAFF SONOGRAPHER [Primary Care Provider] - 4-7 days (Call the office Monday to set up an appointment for 4 to 7 days) Discharge Diet: Diabetic Discharge Activity: Resume usual activity Patient Instructions: Insulin Aspart, Recombinant (Injection), Insulin Glargine (Injection), Meal Planning with Diabetes Exchanges (DC) Activity Restrictions/Additional Instructions: as tolerated 1. followup with PCP in 48-72 hours 2. ask about endocrinology consultation 3. monitor FSBS , continue insulin therapy Discharge Attestations Time Spent in Discharge Care*: less than 30 min Quality Metrics Clinical Quality Measures During this hospital stay, did patient experience: None Coding Level of Care Code Acute Electronic Funds Transfer Coordinator for [facility] Diagnoses Diabetes mellitus, new onset E11.9 Acute dehydration E86.0 Cerebral palsy G80.9 Seizure disorder G40.905
== END 2020-03-15 15:45 | disposition home or self-care (01) ==
LOC: ER 03:05 → MEDSURG 03:18
PROVIDERS: Nurse Practitioner Family; Admitting Provider Internal Medicine; Emergency Provider Emergency Medicine; PCP Nurse Practitioner Family; Visit Provider Internal Medicine
DX: E11.9 Type 2 diabetes mellitus without complications (principal); E86.0 Dehydration; G80.9 Cerebral palsy, unspecified; G40.909 Epilepsy, unspecified, not intractable, without status epilepticus
CPT/HCPCS: 12345; 36415; 36416; 36600; 80048; 80051; 80053; 80061; 80164; 81001; 82009; 82330; 82805; 82962; 83036; 83605; 83735; 84100; 84443; 85025; 96360; 96361; 96372; 99282; 99285; G0378; J1650; J1815 ×2; J7030; J7040

== ENCOUNTER 2020-03-15 22:26 | Emergency (ER) | payer MEDICAID, SELFPAY ==
[2020-03-15 22:42] VITALS: BP 151/95; PULSE 121; RESP 14; TEMP 36.4; O2SAT 97; BMI 25.1
[2020-03-15 22:46] LABS: Glucose Point of Care 282 mg/dL (70-110)
[2020-03-15 23:40] LABS: Basophils # 0.1 10^3/uL (0.0-0.1); Basophils % 0.5 %; Eosinophils # 0.2 10^3/uL (0.0-0.8); Eosinophils % 1.4 %; Hematocrit 44.8 % (42.0-52.0); Lymphocytes # 3.5 10^3/uL (1.5-6.5); Lymphocytes % 33.1 %; Mean Corpuscular HGB Conc 33.5 g/dL (30.0-36.0); Mean Corpuscular Hemoglobin 30.1 pg (28.0-34.0); Mean Corpuscular Volume 89.8 fL (80-94); Mean Platelet Volume 11.1 fL (7.4-10.4); Monocytes # 1.3 10^3/uL (0.2-0.9); Monocytes % 12.6 %; Neutrophils # 5.52 10^3/uL (1.8-8.0); Neutrophils % 52.1 %; Nucleated Red Blood Cells % 0 %; Platelet Count 216 10^3/cmm (130-400); Red Blood Count 4.99 10^6/uL (4.1-5.3); Red Cell Distribution Width 13.9 % (12.1-15.1); White Blood Count 10.6 10^3/uL (4.5-13.0)
[2020-03-15 23:47] VITALS: BP 164/96; PULSE 112; RESP 22; O2SAT 99
[2020-03-15 23:48] LABS: Ketone (Acetest) Serum Negative (Negative)
[2020-03-15 23:53] LABS: Alanine Aminotransferase 19 U/L (0-41); Albumin Level 4.1 g/dL (3.5-5.2); Alkaline Phosphatase 88 IU/L (40-130); Aspartate Amino Transferase 19 U/L (0-40); Blood Urea Nitrogen 6 mg/dL (6-20); Calcium 9.4 mg/dL (8.5-10.5); Carbon Dioxide 24 mmol/L (22-29); Chloride 97 mmol/L (98-107); Globulin 2.9 g/dL (1.3-4.6); Glomerular Filtration Rate 173.6 mL/min (90-130); Glucose 259 mg/dL (65-115); Osmolality Calculated 283 mOsm/kg (285-295); Sodium 133 mmol/L (136-145); Total Bilirubin 0.5 mg/dL (0.15-1.2)
[2020-03-15 23:54] LABS: Add Urine Microscopic? NO
--- NOTE | 2020-03-15 23:54 | W.ED.GENADLT ---
Documented by User: CA Altman 03/16/20 03:07 HPI - General Adult General: Chief complaint: General Medical Stated complaint: BS ELEVATED/JUST D/C TODAY Time Seen by Provider: 03/15/20 22:46 Source: family (mother, primary clinical manager home care) Mode of arrival: wheelchair Limitations: physical limitation History of Present Illness: HPI narrative: 19-year-old male patient presents to the emergency department with his mother. He was discharged from the hospital today, was hospitalized due to new onset diabetes, hyperglycemia. He was initiated on insulin glargine, 12 units subcu daily, insulin aspart, NovoLog, 5 units subcu with meals. He does not have a glucometer at home; glucometer was prescribed. His mother reports attempted to have medications filled at [facility] in [facility], [facility] refused to fill any medications including glucometer secondary to insufficient data. She reports has a diabetic family member who took Ernesto blood sugar, blood sugar reading was 364. She reports became concerned that she does not have insulin at home to treat sugar reading. She states was advised to return to the emergency department if blood sugar readings were greater than 300. She states was not comfortable with his discharge from the hospital today as his blood sugars were not controlled adequately. She reports his blood sugars remain uncontrolled and knows that can be harmful. She has requested endocrinology to see him here in the ED. She states Geremias is exhibiting polyuria, polydipsia with decreased appetite as experienced prior to hospitalization. She reports he was not able to return to the long-term care facility due to new onset diabetes as the facility will not administer insulin. She reports he is now living with her. Geremias suffers from cerebral palsy, is wheelchair-bound, dependent on all the ADLs. Relieving factors: none Exacerbating factors: none Associated symptoms: Reports no associated symptoms; Deny chest pain, diaphoresis, dyspnea, headache(s), nausea, rash, palpitations or vomiting Treatments prior to arrival: none Review of Systems General: Reports: 10 or more systems reviewed and unremarkable except in HPI and below Const: Denies: fever(s), chills or diaphoresis Eyes: Denies: blurry vision or eye redness ENMT: Denies: throat pain, dental pain or disequilibrium Card: Denies: chest pain, palpitations or irregular heart rhythm Resp: Denies: dyspnea, productive cough, non-productive cough or wheezing GI: Denies: abdominal pain, nausea or vomiting : Reports: urinary frequency and urinary incontinence (chronic ); Denies: difficulty urinating, dysuria or difficulty starting urination Musc: Denies: neck pain or back pain Skin/Breast: Denies: rash or pruritus Neuro: Denies: headache(s), weakness in extremities or behavioral changes Psych: Reports: anxiety, depression and irritability Brain/Lymph: Denies: easy bruising PFSH ED PFSH: Medical History Cerebral palsy Seizure disorder Severe mental handicap Wheelchair bound Surgical History History of tonsillectomy and adenoidectomy Family History (Updated 03/14/20 @ 03:35 by Rosales Lawrence MD) Mother Diabetes Type I Social History Second hand smoke exposure: No Alcohol intake: never Adopted: No Caregiver/support person: Yes Lives independently: No Household members: other Housing: Assisted Living Facility Physical Exam Const: COMMON NORMALS: no acute distress, healthy appearing, alert and well nourished EXAM LIMITATIONS: physical limitations GENERAL APPEARANCE: cooperative, comfortable, well kempt, well developed and well hydrated; not in distress, not anxious and not combative ORIENTATION/CONSCIOUSNESS: Yes awake and Yes oriented to person HENMT: COMMON NORMALS: normocephalic, atraumatic, EAC's normal, Normal external nose present and moist oral mucous membranes HEAD & SCALP: normocephalic and atraumatic FACE & SINUS: normal facial exam and face symmetric NOSE: Normal external nose present EXTERNAL AUDITORY CANAL: EAC's normal THROAT: posterior oropharynx normal and uvula midline Eye: COMMON NORMALS: Equal, round and reactive pupils present and EOMs intact bilaterally GENERAL EYE: appearance normal, both eyes and all related structures PUPIL: Yes Equal, round and reactive pupils present Neck/C-Spine: COMMON NORMALS: full ROM, no lymphadenopathy and no meningeal signs GENERAL: Yes normal visual inspection and Yes trachea midline CERVICAL SPINE: Yes cervical ROM normal Lymph: LYMPHATIC: no lymphadenopathy noted Chest: COMMONS NORMALS: normal inspection of the chest and normal palpation of entire chest wall Resp: COMMON NORMALS: normal respiratory effort, No retractions, No use of accessory muscles and clear to auscultation bilaterally EFFORT & INSPECTION: Yes able to speak in complete sentences AUSCULTATION: clear to auscultation bilaterally Cardio: COMMON NORMALS: regular rhythm, S1 normal heart sound present, S2 normal heart sound present and Peripheral pulses 2+ throughout RATE: tachycardic RHYTHM: regular rhythm HEART SOUNDS: S1 normal heart sound present and S2 normal heart sound present PERIPHERAL PULSES: Peripheral pulses 2+ throughout GI: COMMON NORMALS: Normal to inspection, nondistended, normoactive bowel sounds present, Soft to palpation and non-tender INSPECTION: Yes normal to inspection PALPATION: Yes Soft to palpation : COMMON NORMALS: Yes no CVA tenderness BLADDER/KIDNEY EXAM: Yes no CVA tenderness Back/Pelvis: COMMON NORMALS: no CVA tenderness and thoracic and lumbar spine normal to inspection Extremity: COMMON NORMALS: normal to inspection and capillary refill normal Neuro: COMMON NORMALS: no focal motor deficits SENSORIUM/ORIENTATION: Yes alert and Yes oriented to person MENINGEAL SIGNS: Yes no meningeal signs GAIT: Yes Unable to assess gait MOTOR EXAM: Motor abnormalites present (CP, weakness poor control BLE) Psych: COMMON NORMALS: cooperative APPEARANCE: Yes grossly normal and Yes well kempt ATTITUDE: Yes Other attitude/behavior findings present (Psych) (excited) ACTIVITY/MOTOR BEHAVIOR: Yes appropriate eye contact, Yes fidgeting, Yes hyperactivity and Yes restless SPEECH: Yes incoherent INSIGHT: Limited insight present (Psych) JUDGEMENT: Limited judgement present (Psych) Skin: COMMON NORMALS: no rashes or lesions noted and turgor normal GENERAL SKIN EXAM: no rashes or lesions noted and turgor normal Course Vital Signs: Vital signs: Vital Signs Temperature 97.6 F 03/15/20 22:42 Pulse Rate 88 03/16/20 03:00 Respiratory Rate 16 03/16/20 03:00 Blood Pressure 146/94 03/16/20 03:00 Pulse Oximetry 96 03/16/20 03:00 MDM - General Adult MDM Narrative: Medical decision making narrative: 19-year-old patient presents to the emergency department with history of cerebral palsy, wheelchair-bound, MHMR. His guardian became concerned when medication prescribed today was not filled at the pharmacy. She was noted to be angry and upset as she did not have insulin to treat his blood sugar reading of 364 at home. Upon arrival to the ED, glucose noted to be 282. I attempted to offer dose of Lantus here in the ED along with NovoLog sliding scale and discharge home with appropriate data placed on new prescriptions so insulin and glucometer would be filled by the pharmacy. She verbalized her expectation patient will be admitted as he never should have been discharged with uncontrolled blood sugar. Serology testing completed, ketones were negative, chemistry unremarkable with exception of glucose reading of 259. CBC without acute abnormalities. Patient received 1 L fluid here in the ED along with 5 units of NovoLog subcutaneously. Blood sugar readings decreased to 196. Patient was observed here in the ED, he is not in distress. Vital signs were stable, I again attempted to discuss stable glucose reading with a caregiver who again advised he should stay in the hospital and not be discharged. She states does not feel comfortable caring for him at home when he does not have a glucometer or insulin to treat glucose readings. I discussed clinical course, serology findings as below history of present illness with Dr. Frye who discussed case with the hospitalist, patient does not meet criteria for hospital admission as glucose readings are stable, he does not exhibit DKA, ketones are negative, caregiver plans to continue care for him at home and does not seek placement into a long-term care facility, prescriptions can be corrected and filled in the morning. I discussed my conversation with the caregiver I had with the hospitalist, patient does not meet admission criteria, she agrees with follow-up with primary care provider this week. She reports feels comfortable caring for diabetic patient at home as she was the primary oil tester of another individual with insulin-dependent diabetes. Lab Data: Labs: Lab Results 03/15/20 03/15/20 03/15/20 Range/Units 22:42 23:35 23:35 WBC 10.6 (4.5-13.0) 10^3/ uL RBC 4.99 (4.1-5.3) 10^6/u L Hgb 15.0 (11.7-16.6) g/dL Hct 44.8 (42.0-52.0) % MCV 89.8 (80-94) fL MCH 30.1 (28.0-34.0) pg MCHC 33.5 (30.0-36.0) g/dL RDW 13.9 (12.1-15.1) % Plt Count 216 (130-400) 10^3/c mm MPV 11.1 H (7.4-10.4) fL Neut % (Auto) 52.1 % Lymph % (Auto) 33.1 % [place] % (Auto) 12.6 % Eos % (Auto) 1.4 % Baso % (Auto) 0.5 % Neut # (Auto) 5.52 (1.8-8.0) 10^3/u L Lymph # (Auto) 3.5 (1.5-6.5) 10^3/u L [place] # (Auto) 1.3 H (0.2-0.9) 10^3/u L Eos # (Auto) 0.2 (0.0-0.8) 10^3/u L Baso # (Auto) 0.1 (0.0-0.1) 10^3/u L Nucleated RBC % (a uto) 0 % Nucleated RBCs # 0.0 /100WBC Sodium (136-145) mmol/L Potassium (3.5-5.1) mmol/L Chloride (98-107) mmol/L Carbon Dioxide (22-29) mmol/L Anion Gap (5-19) BUN (6-20) mg/dL Creatinine (0.7-1.2) mg/dL GFR Calculation (90-130) mL/min Glucose (65-115) mg/dL POC Glucose 282 H (70-110) mg/dL Calculated Osmolal ity (285-295) mOsm/k g Calcium (8.5-10.5) mg/dL Total Bilirubin (0.15-1.2) mg/dL AST (0-40) U/L ALT (0-41) U/L Alkaline Phosphata se (40-130) IU/L Total Protein (6.6-8.7) g/dL Albumin (3.5-5.2) g/dL Globulin (1.3-4.6) g/dL Urine Color (Yellow) Urine Appearance (CLEAR) Urine pH (5-7) Ur Specific Gravit y (1.005-1.030) Urine Protein (Negative) Urine Glucose (UA) (Normal) Urine Ketones (Negative) Urine Blood (Negative) Urine Nitrate (Negative) Urine Bilirubin (Negative) Urine Urobilinogen (Negative) mg/dL Ur Leukocyte Cyndie ase (Negative) Serum Ketones Negative (Negative) 03/15/20 03/15/20 03/16/20 Range/Units 23:35 23:46 01:59 WBC (4.5-13.0) 10^3/ uL RBC (4.1-5.3) 10^6/u L Hgb (11.7-16.6) g/dL Hct (42.0-52.0) % MCV (80-94) fL MCH (28.0-34.0) pg MCHC (30.0-36.0) g/dL RDW (12.1-15.1) % Plt Count (130-400) 10^3/c mm MPV (7.4-10.4) fL Neut % (Auto) % Lymph % (Auto) % [place] % (Auto) % Eos % (Auto) % Baso % (Auto) % Neut # (Auto) (1.8-8.0) 10^3/u L Lymph # (Auto) (1.5-6.5) 10^3/u L [place] # (Auto) (0.2-0.9) 10^3/u L Eos # (Auto) (0.0-0.8) 10^3/u L Baso # (Auto) (0.0-0.1) 10^3/u L Nucleated RBC % (a uto) % Nucleated RBCs # /100WBC Sodium 133 L (136-145) mmol/L Potassium 4.0 (3.5-5.1) mmol/L Chloride 97 L (98-107) mmol/L Carbon Dioxide 24 (22-29) mmol/L Anion Gap 16.0 (5-19) BUN 6 (6-20) mg/dL Creatinine 0.6 L (0.7-1.2) mg/dL GFR Calculation 173.6 H (90-130) mL/min Glucose 259 H (65-115) mg/dL POC Glucose 196 H (70-110) mg/dL Calculated Osmolal ity 283 L (285-295) mOsm/k g Calcium 9.4 (8.5-10.5) mg/dL Total Bilirubin 0.5 (0.15-1.2) mg/dL AST 19 (0-40) U/L ALT 19 (0-41) U/L Alkaline Phosphata se 88 (40-130) IU/L Total Protein 7.0 (6.6-8.7) g/dL Albumin 4.1 (3.5-5.2) g/dL Globulin 2.9 (1.3-4.6) g/dL Urine Color Straw (Yellow) Urine Appearance Clear (CLEAR) Urine pH 5 (5-7) Ur Specific Gravit y 1.005 (1.005-1.030) Urine Protein Neg (Negative) Urine Glucose (UA) 4+ H (Normal) Urine Ketones 1+ H (Negative) Urine Blood Neg (Negative) Urine Nitrate Negative (Negative) Urine Bilirubin Neg (Negative) Urine Urobilinogen Norm (Negative) mg/dL Ur Leukocyte Cyndie ase Negative (Negative) Serum Ketones (Negative) Discharge Plan Discharge Patient Disposition: Home Clinical Impression: Diabetes mellitus, new onset, Hyperglycemia Condition: Stable Prescriptions: New Lantus U-100 Insulin 100 unit/mL Solution 12 unit SUBCUT DAILY Qty: 30 RF: 1 (DME) Contour Test Strips Strip See Rx Instructions .ROUTE .MEDSUPPLY Qty: 10 RF: 0 Novolog U-100 Insulin aspart 100 unit/mL Solution 0 unit SUBCUT WM&BEDTIME Qty: 5 RF: 1 No Action buspirone 15 mg tablet 15 mg PO BID RF: 0 Calcium Adult (calcium phos) 250 mg-8.75 mcg (350 unit) tablet,chewable 600 tab PO BID RF: 0 divalproex 250 mg tablet,delayed release (DR/EC) 250 mg PO BEDTIME RF: 0 divalproex 500 mg tablet,delayed release (DR/EC) 500 mg PO BID RF: 0 DOK 100 mg capsule 100 mg PO BID RF: 0 levothyroxine 50 mcg tablet 50 mcg PO DAILY RF: 0 melatonin 3 mg tablet 12 mg PO BEDTIME RF: 0 polyethylene glycol 3350 17 gram/dose powder 17 g PO DAILY RF: 0 quetiapine 100 mg tablet 100 mg PO TID RF: 0 Discharge Orders: Discharge ED (Routine); Ordered 03/16/20 Ordered By: Noreen David Referrals: Alison Adame FNP [Primary Care Provider] - Discharge Diet: Diabetic Discharge Activity: Resume usual activity Patient Instructions: How to Check Your Blood Sugar (ED), Diabetes Mellitus Type 1 in Adults (ED) Activity Restrictions/Additional Instructions: New prescriptions have been provided, follow-up with your primary care physician this week due to new onset diabetes and hospital follow-up Continue with hospitalist recommendations as per discharge instructions Return to the emergency department if patient develops glucose readings greater than 500 Coding Level of Care Code ED System Support Technician for Chg Fwd Exam Comprehensive Documented by User: Andreas Frye DO 03/16/20 05:46 HPI - General Adult General: Chief complaint: General Medical Stated complaint: BS ELEVATED/JUST D/C TODAY Time Seen by Provider: 03/15/20 22:46 [facility] ED PFSH: Medical History Cerebral palsy Seizure disorder Severe mental handicap Wheelchair bound Surgical History History of tonsillectomy and adenoidectomy Family History (Updated 03/14/20 @ 03:35 by Rosales Lawrence MD) Mother Diabetes Type I Social History Second hand smoke exposure: No Alcohol intake: never Adopted: No Caregiver/support person: Yes Lives independently: No Household members: other Housing: Assisted Living Facility Course Vital Signs: Vital signs: Vital Signs Temperature 97.6 F 03/15/20 22:42 Pulse Rate 88 03/16/20 03:00 Respiratory Rate 16 03/16/20 03:00 Blood Pressure 146/94 03/16/20 03:00 Pulse Oximetry 96 03/16/20 03:00 MDM - General Adult MDM Narrative: Medical decision making narrative: This is a 19-year-old male originally seen by MARLI De La Rosa. I agree with her history, evaluation, work-up, and treatment his blood sugar is now under 200. There are no ketones. There is no sign of diabetic ketoacidosis. The patient is quite stable. We consulted with the hospitalist about repeat admission, but given the above information, there really is no need. We have given the patient long-acting insulin this morning which should hold his sugars a day until he can get prescription filled later this morning. The oil tester is quite upset at this point. We talked about an observation, to consult social work, and try to get the patient to a place for he can be taken care of, but she repeatedly stated that she was not going to allow that. The patient was discharged to home with the oil tester at that point. Lab Data: Labs: Lab Results 03/15/20 03/15/20 03/15/20 Range/Units 22:42 23:35 23:35 WBC 10.6 (4.5-13.0) 10^3/ uL RBC 4.99 (4.1-5.3) 10^6/u L Hgb 15.0 (11.7-16.6) g/dL Hct 44.8 (42.0-52.0) % MCV 89.8 (80-94) fL MCH 30.1 (28.0-34.0) pg MCHC 33.5 (30.0-36.0) g/dL RDW 13.9 (12.1-15.1) % Plt Count 216 (130-400) 10^3/c mm MPV 11.1 H (7.4-10.4) fL Neut % (Auto) 52.1 % Lymph % (Auto) 33.1 % [place] % (Auto) 12.6 % Eos % (Auto) 1.4 % Baso % (Auto) 0.5 % Neut # (Auto) 5.52 (1.8-8.0) 10^3/u L Lymph # (Auto) 3.5 (1.5-6.5) 10^3/u L [place] # (Auto) 1.3 H (0.2-0.9) 10^3/u L Eos # (Auto) 0.2 (0.0-0.8) 10^3/u L Baso # (Auto) 0.1 (0.0-0.1) 10^3/u L Nucleated RBC % (a uto) 0 % Nucleated RBCs # 0.0 /100WBC Sodium (136-145) mmol/L Potassium (3.5-5.1) mmol/L Chloride (98-107) mmol/L Carbon Dioxide (22-29) mmol/L Anion Gap (5-19) BUN (6-20) mg/dL Creatinine (0.7-1.2) mg/dL GFR Calculation (90-130) mL/min Glucose (65-115) mg/dL POC Glucose 282 H (70-110) mg/dL Calculated Osmolal ity (285-295) mOsm/k g Calcium (8.5-10.5) mg/dL Total Bilirubin (0.15-1.2) mg/dL AST (0-40) U/L ALT (0-41) U/L Alkaline Phosphata se (40-130) IU/L Total Protein (6.6-8.7) g/dL Albumin (3.5-5.2) g/dL Globulin (1.3-4.6) g/dL Urine Color (Yellow) Urine Appearance (CLEAR) Urine pH (5-7) Ur Specific Gravit y (1.005-1.030) Urine Protein (Negative) Urine Glucose (UA) (Normal) Urine Ketones (Negative) Urine Blood (Negative) Urine Nitrate (Negative) Urine Bilirubin (Negative) Urine Urobilinogen (Negative) mg/dL Ur Leukocyte Cyndie ase (Negative) Serum Ketones Negative (Negative) 03/15/20 03/15/20 03/16/20 Range/Units 23:35 23:46 01:59 WBC (4.5-13.0) 10^3/ uL RBC (4.1-5.3) 10^6/u L Hgb (11.7-16.6) g/dL Hct (42.0-52.0) % MCV (80-94) fL MCH (28.0-34.0) pg MCHC (30.0-36.0) g/dL RDW (12.1-15.1) % Plt Count (130-400) 10^3/c mm MPV (7.4-10.4) fL Neut % (Auto) % Lymph % (Auto) % [place] % (Auto) % Eos % (Auto) % Baso % (Auto) % Neut # (Auto) (1.8-8.0) 10^3/u L Lymph # (Auto) (1.5-6.5) 10^3/u L [place] # (Auto) (0.2-0.9) 10^3/u L Eos # (Auto) (0.0-0.8) 10^3/u L Baso # (Auto) (0.0-0.1) 10^3/u L Nucleated RBC % (a uto) % Nucleated RBCs # /100WBC Sodium 133 L (136-145) mmol/L Potassium 4.0 (3.5-5.1) mmol/L Chloride 97 L (98-107) mmol/L Carbon Dioxide 24 (22-29) mmol/L Anion Gap 16.0 (5-19) BUN 6 (6-20) mg/dL Creatinine 0.6 L (0.7-1.2) mg/dL GFR Calculation 173.6 H (90-130) mL/min Glucose 259 H (65-115) mg/dL POC Glucose 196 H (70-110) mg/dL Calculated Osmolal ity 283 L (285-295) mOsm/k g Calcium 9.4 (8.5-10.5) mg/dL Total Bilirubin 0.5 (0.15-1.2) mg/dL AST 19 (0-40) U/L ALT 19 (0-41) U/L Alkaline Phosphata se 88 (40-130) IU/L Total Protein 7.0 (6.6-8.7) g/dL Albumin 4.1 (3.5-5.2) g/dL Globulin 2.9 (1.3-4.6) g/dL Urine Color Straw (Yellow) Urine Appearance Clear (CLEAR) Urine pH 5 (5-7) Ur Specific Gravit y 1.005 (1.005-1.030) Urine Protein Neg (Negative) Urine Glucose (UA) 4+ H (Normal) Urine Ketones 1+ H (Negative) Urine Blood Neg (Negative) Urine Nitrate Negative (Negative) Urine Bilirubin Neg (Negative) Urine Urobilinogen Norm (Negative) mg/dL Ur Leukocyte Cyndie ase Negative (Negative) Serum Ketones (Negative) Discharge Plan Discharge Patient Disposition: Home Clinical Impression: Diabetes mellitus, new onset, Hyperglycemia Condition: Stable Prescriptions: New Lantus U-100 Insulin 100 unit/mL Solution 12 unit SUBCUT DAILY Qty: 30 RF: 1 (DME) Contour Test Strips Strip See Rx Instructions .ROUTE .MEDSUPPLY Qty: 10 RF: 0 Novolog U-100 Insulin aspart 100 unit/mL Solution 0 unit SUBCUT WM&BEDTIME Qty: 5 RF: 1 No Action buspirone 15 mg tablet 15 mg PO BID RF: 0 Calcium Adult (calcium phos) 250 mg-8.75 mcg (350 unit) tablet,chewable 600 tab PO BID RF: 0 divalproex 250 mg tablet,delayed release (DR/EC) 250 mg PO BEDTIME RF: 0 divalproex 500 mg tablet,delayed release (DR/EC) 500 mg PO BID RF: 0 DOK 100 mg capsule 100 mg PO BID RF: 0 levothyroxine 50 mcg tablet 50 mcg PO DAILY RF: 0 melatonin 3 mg tablet 12 mg PO BEDTIME RF: 0 polyethylene glycol 3350 17 gram/dose powder 17 g PO DAILY RF: 0 quetiapine 100 mg tablet 100 mg PO TID RF: 0 Discharge Orders: Discharge ED (Routine); Ordered 03/16/20 Ordered By: Noreen David Referrals: Alison Adame FNP [Primary Care Provider] - Discharge Diet: Diabetic Discharge Activity: Resume usual activity Patient Instructions: How to Check Your Blood Sugar (ED), Diabetes Mellitus Type 1 in Adults (ED) Activity Restrictions/Additional Instructions: New prescriptions have been provided, follow-up with your primary care physician this week due to new onset diabetes and hospital follow-up Continue with hospitalist recommendations as per discharge instructions Return to the emergency department if patient develops glucose readings greater than 500 Coding Level of Care Code ED System Support Technician for Chg Fwd Exam Comprehensive
[2020-03-16] MEDS: sodium chloride 0.9% 1,000 ML 999 ML IV (00:01)
[2020-03-16 00:07] LABS: Protein Urine Neg (Negative); Specific Gravity, Urine 1.005 (1.005-1.030); Urine Appearance Clear (CLEAR); Urine Color Straw (Yellow); pH Urine 5 (5-7)
[2020-03-16 00:08] LABS: Bilirubin Urine Neg (Negative); Blood Urine Neg (Negative); Glucose Urine UA 4+ (Normal); Ketones Urine 1+ (Negative); Leukocyte Esterase Urine Negative (Negative); Nitrate Urine Negative (Negative); Urobilinogen Urine Norm (Negative)
[2020-03-16 00:57] VITALS: BP 143/81; PULSE 68; RESP 18; O2SAT 96
[2020-03-16 02:03] LABS: Glucose Point of Care 196 mg/dL (70-110)
[2020-03-16 03:00] VITALS: BP 146/94; PULSE 88; RESP 16; O2SAT 96
== END 2020-03-16 03:02 | disposition home or self-care (01) ==
PROVIDERS: Emergency Provider Nurse Practitioner Family; PCP Registered Nurse
DX: E11.65 Type 2 diabetes mellitus with hyperglycemia (principal); G80.9 Cerebral palsy, unspecified
CPT/HCPCS: 12345; 36415; 36416; 80053; 81003; 82009; 82962; 85025; 96360; 96372; 99282; 99283; J1815; J7030

== ENCOUNTER 2022-04-27 18:52 | Emergency (ER) | payer MEDICAID, SELFPAY ==
[2022-04-27 19:06] VITALS: BP 174/88; PULSE 139; RESP 25; TEMP 36.2; O2SAT 99; BMI 25.8
--- NOTE | 2022-04-27 19:45 | ED_ITS ---
HPI - General Adult General: Chief complaint: General Medical Stated complaint: HITTING HIMSELF IN THE FACE/ NOSEBLEED/ ANXIETY Time Seen by Provider: 04/27/22 19:08 Source: other (Caregiver) Mode of arrival: EMS Limitations: other (Severe MR) History of Present Illness: This 21-year-old male with a history of severe MR and autism was brought in by caregiver because of nosebleed and elevated blood pressure. Per caregiver, nosebleed lasted for about 3 to 5 minutes and spontaneously resolved. They noted that patient was hitting himself in the head shortly before the nosebleed started. No direct trauma to the nose was reported. Also, patient has been agitated all afternoon. Caregiver notes that this happens from time to time. He is unable to verbalize or express the way he feels. Review of Systems General: Reports: ROS unobtainable due to medical condition [facility] PFSH: Medical History Cerebral palsy Seizure disorder Severe mental handicap Wheelchair bound Surgical History History of tonsillectomy and adenoidectomy Family History (Updated 03/14/20 @ 03:35 by Rosales Lawrence MD) Mother Diabetes Type I Social History Second hand smoke exposure: No Alcohol intake: never Adopted: No Caregiver/support person: Yes Lives independently: No Household members: other Housing: Assisted Living Facility Physical Exam Narrative: EXAM NARRATIVE: Hyperactive. Does not follow instructions. HENMT: COMMON NORMALS: normocephalic HEAD & SCALP: normocephalic Neck/C-Spine: COMMON NORMALS: full ROM and supple Chest: COMMONS NORMALS: normal inspection of the chest Resp: COMMON NORMALS: normal respiratory effort, No retractions, No use of accessory muscles and clear to auscultation bilaterally AUSCULTATION: clear to auscultation bilaterally Cardio: COMMON NORMALS: No murmurs present (Cardio) OTHER: Tachycardia, regular rhythm, no murmur. GI: OTHER: Abdomen is soft with no signs of tenderness. Bowel sounds present. Extremity: OTHER: Bilateral diffuse atrophy. Neuro: COMMON NORMALS: no focal motor deficits Course Vital Signs: Vital signs: Vital Signs Temperature 97.1 F L 04/27/22 19:06 Pulse Rate 139 H 04/27/22 19:06 Respiratory Rate 25 H 04/27/22 19:06 Blood Pressure 174/88 04/27/22 19:06 Pulse Oximetry 99 04/27/22 19:06 Oxygen Delivery Me thod 04/27/22 19:06 MDM - General Adult Medical Decision Making Medical decision making: History as above. Patient has clonazepam which he takes as needed for agitation. It was given to him just shortly before they arrived the ER. Here in the ER patient is cooperative but would occasionally cry out and be a ctive in bed. Ativan was given. Completed blood tests are unremarkable On reevaluation, he was calmer, and more cooperative. There is nohing to warrant admitting patient to hospital. Mom was advised to follow-up with primary care physician. Return instructions provided. Lab Data 04/27/22 20:22 04/27/22 20:22 Laboratory Results WBC 9.4 10^3/uL (4.0-10.0) 04/27/22 20: RBC 5.18 10^6/uL (4.1-5.3) 04/27/22 20:22 Hgb 15.8 g/dL (11.7-16.6) 04/27/22 20: Hct 46.7 % (42.0-52.0) 04/27/22 20: MCV 90.2 fl (80-94) 04/27/22 20: MCH 30.5 pg (28.0-34.0) 04/27/22 20: MCHC 33.8 g/dL (30.0-36.0) 04/27/22 20: RDW 12.3 % (12.1-15.1) 04/27/22 20: Plt Count 210 10^3/cmm (130-400) 04/27/22 20: MPV 11.3 fL (7.4-10.4) H 04/27/22 20: Neut % (Auto) 41.8 % 04/27/22 20: Lymph % (Auto) 49.1 % 04/27/22 20: [place] % (Auto) 7.4 % 04/27/22 20:22 Eos % (Auto) 1.1 % 04/27/22 20: Baso % (Auto) 0.4 % 04/27/22 20: Neut # (Auto) 3.92 10^3/uL (1.8-7.7) 04/27/22 20: Lymph # (Auto) 4.6 10^3/uL (0.8-4.8) 04/27/22 20: [place] # (Auto) 0.7 10^3/uL (0.2-0.9) 04/27/22 20: Eos # (Auto) 0.1 10^3/uL (0.0-0.8) 04/27/22 20: Baso # (Auto) 0.0 10^3/uL (0.0-0.1) 04/27/22 20: Nucleated RBC % (auto) 0 % 04/27/22 20: Nucleated RBCs # 0.0 /100WBC 04/27/22 20: Sodium 139 mmol/L (136-145) 04/27/22 20: Potassium 3.9 mmol/L (3.5-5.1) 04/27/22 20: Chloride 102 mmol/L (98-107) 04/27/22 20: Carbon Dioxide 23 mmol/L (22-29) 04/27/22 20: Anion Gap 17.9 (5-19) 04/27/22 20: BUN 11 mg/dL (6-20) 04/27/22 20: Creatinine 0.7 mg/dL (0.7-1.2) 04/27/22 20: GFR Calculation 142.4 mL/min (90-130) H 04/27/22 20: Glucose 109 mg/dL (65-115) 04/27/22 20: Calculated Osmolality 288 mOsm/kg (285-295) 04/27/22 20: Calcium 9.1 mg/dL (8.5-10.5) 04/27/22 20: Total Bilirubin 0.2 mg/dL (0.15-1.2) 04/27/22 20: AST 22 U/L (0-40) 04/27/22 20: ALT 27 U/L (0-41) 04/27/22 20:22 Alkaline Phosphatase 58 U/L (40-130) 04/27/22 20:22 Total Protein 6.6 g/dL (6.6-8.7) 04/27/22 20:22 Albumin 4.4 g/dL (3.5-5.2) 04/27/22 20:22 Globulin 2.2 g/dL (1.3-4.6) 04/27/22 20:22 TSH 5.14 uIU/mL (0.27-4.20) H 04/27/22 20:22 Urine Color Straw (Yellow) 04/27/22 20:55 Urine Appearance Clear (CLEAR) 04/27/22 20:55 Urine pH 8 (5-7) H 04/27/22 20:55 Ur Specific [place] 1.015 (1.005-1.030) 04/27/22 20:55 Urine Protein Neg (Negative) 04/27/22 20:55 Urine Glucose (UA) Norm (Normal) 04/27/22 20:55 Urine Ketones Negative (Negative) 04/27/22 20:55 Urine Blood Neg (Negative) 04/27/22 20:55 Urine Nitrate Negative (Negative) 04/27/22 20:55 Urine Bilirubin Neg (Negative) 04/27/22 20:55 Prot Sulfosalicylic Acd Negative (Negative) 04/27/22 20:55 Urine Urobilinogen Neg mg/dL (Negative) 04/27/22 20:55 Ur Leukocyte Esterase Negative (Negative) 04/27/22 20:55 Valproic Acid 82.0 ug/mL (50-100) 04/27/22 20:22 Discharge Plan Discharge Patient Disposition: Home Clinical Impression: Agitation Condition: Stable Prescriptions: No Action buspirone 15 mg tablet 15 mg PO BID Calcium Adult (calcium phos) 250 mg-8.75 mcg (350 unit) tablet,chewable 600 tab PO BID divalproex 250 mg tablet,delayed release (DR/EC) 250 mg PO BEDTIME divalproex 500 mg tablet,delayed release (DR/EC) 500 mg PO BID DOK 100 mg capsule 100 mg PO BID levothyroxine 50 mcg tablet 50 mcg PO DAILY melatonin 3 mg tablet 12 mg PO BEDTIME polyethylene glycol 3350 17 gram/dose powder 17 g PO DAILY quetiapine 100 mg tablet 100 mg PO TID Lantus U-100 Insulin 100 unit/mL Solution 12 unit SUBCUT DAILY Qty: 30 1RF (DME) Contour Test Strips Strip See Rx Instructions .ROUTE .MEDSUPPLY Qty: 10 0RF Rx Instructions: As directed Novolog U-100 Insulin aspart 100 unit/mL Solution 0 unit SUBCUT WM&BEDTIME Qty: 5 1RF Discharge Orders: Discharge ED (Routine); Ordered 04/27/22 Ordered By: Earl York Referrals: Maria E Hicks DO [Primary Care Provider] - Discharge Diet: Usual diet Discharge Activity: Resume usual activity Patient Instructions: Opioid Safety, Pain Management Activity Restrictions/Additional Instructions: Continue taking the clonazepam we have as needed for agitation. Continue taking your usual home medications. Follow-up with your primary care physician. Return with new or worsening symptoms. Coding Level of Care Code ED Process Control Operator for [facility]
[2022-04-27] MEDS: LORazepam 2 mg Tablet PO (19:49)
[2022-04-27 20:00] VITALS: BP 135/91
[2022-04-27 20:55] LABS: Basophils % 0.4 %; Eosinophils # 0.1 10^3/uL (0.0-0.8); Eosinophils % 1.1 %; Hematocrit 46.7 % (42.0-52.0); Hemoglobin 15.8 g/dL (11.7-16.6); Lymphocytes # 4.6 10^3/uL (0.8-4.8); Lymphocytes % 49.1 %; Mean Corpuscular HGB Conc 33.8 g/dL (30.0-36.0); Mean Corpuscular Hemoglobin 30.5 pg (28.0-34.0); Mean Corpuscular Volume 90.2 fl (80-94); Mean Platelet Volume 11.3 fL (7.4-10.4); Monocytes # 0.7 10^3/uL (0.2-0.9); Monocytes % 7.4 %; Neutrophils # 3.92 10^3/uL (1.8-7.7); Neutrophils % 41.8 %; Nucleated Red Blood Cells % 0 %; Platelet Count 210 10^3/cmm (130-400); Red Blood Count 5.18 10^6/uL (4.1-5.3); Red Cell Distribution Width 12.3 % (12.1-15.1); White Blood Count 9.4 10^3/uL (4.0-10.0)
[2022-04-27 21:00] VITALS: BP 135/106
[2022-04-27 21:17] LABS: Add Urine Microscopic? NO; Charge for UA Resulting for Rev
[2022-04-27 21:20] LABS: Specific Gravity, Urine 1.015 (1.005-1.030); Urine Appearance Clear (CLEAR); Urine Color Straw (Yellow); pH Urine 8 (5-7)
[2022-04-27 21:21] LABS: Bilirubin Urine Neg (Negative); Blood Urine Neg (Negative); Glucose Urine UA Norm (Normal); Ketones Urine Negative (Negative); Leukocyte Esterase Urine Negative (Negative); Nitrate Urine Negative (Negative); Protein Urine Neg (Negative); Sulfosalicylic Acid Urine Negative (Negative); Urobilinogen Urine Neg (Negative)
[2022-04-27 21:24] LABS: Alanine Aminotransferase 27 U/L (0-41); Albumin Level 4.4 g/dL (3.5-5.2); Alkaline Phosphatase 58 U/L (40-130); Blood Urea Nitrogen 11 mg/dL (6-20); Calcium 9.1 mg/dL (8.5-10.5); Carbon Dioxide 23 mmol/L (22-29); Chloride 102 mmol/L (98-107); Globulin 2.2 g/dL (1.3-4.6); Glomerular Filtration Rate 142.4 mL/min (90-130); Glucose 109 mg/dL (65-115); Osmolality Calculated 288 mOsm/kg (285-295); Sodium 139 mmol/L (136-145); Thyroid Stimulating Hormone 5.14 uIU/mL (0.27-4.20); Total Bilirubin 0.2 mg/dL (0.15-1.2); Total Protein 6.6 g/dL (6.6-8.7)
[2022-04-27 21:29] LABS: Anion Gap 17.9 (5-19); Aspartate Amino Transferase 22 U/L (0-40); Potassium 3.9 mmol/L (3.5-5.1)
[2022-04-27 22:08] VITALS: BP 161/100; PULSE 82
== END 2022-04-27 22:13 | disposition home or self-care (01) ==
PROVIDERS: Nurse Practitioner Family; Emergency Provider Family Medicine; PCP Family Medicine
DX: R45.1 Restlessness and agitation (principal); Z79.4 Long term (current) use of insulin; G80.9 Cerebral palsy, unspecified
CPT/HCPCS: 80053; 80164; 81003; 84443; 85025; 99283

== ENCOUNTER 2024-07-22 21:11 | Emergency (ER) | payer MEDICAID, SELFPAY ==
[2024-07-22 21:48] VITALS: BP 178/106; PULSE 96; RESP 16; TEMP 36.4; O2SAT 97; BMI 24.3
[2024-07-22 22:09] LABS: Glucose Point of Care 105 mg/dL (70-110)
--- NOTE | 2024-07-22 23:01 | CTR_ITS ---
PROCEDURE INFORMATION: Exam: CT Head Without Contrast Exam date and time: 07/22/2024 11:35 PM Age: 23 years old Clinical indication: Injury or trauma; Other: Banging head; Work related; Blunt trauma (contusions or hematomas); Without loss of consciousness; Cerebral palsy; Additional info: , Head injury TECHNIQUE: Imaging protocol: Computed tomography of the head without contrast. Radiation optimization: All CT scans at this facility use at least one of these dose optimization techniques: automated exposure control; mA and/or kV adjustment per patient size (includes targeted exams where dose is matched to clinical indication); or iterative reconstruction. COMPARISON: No relevant prior studies available. RADIATION DOSE METRICS: Total DLP (mGy-cm): 1065.2 FINDINGS: Brain: Severe diffuse ventricular dilation with suspected absence and/or atrophy of the corpus callosum, please correlate clinically and consider further evaluation with an MRI. Cerebral ventricles: No ventriculomegaly. Paranasal sinuses: Visualized sinuses are unremarkable. No fluid levels. Mastoid air cells: Visualized mastoid air cells are well aerated. Bones: Unremarkable. No acute fracture. Soft tissues: Unremarkable. CT/CT head wo con* [id number] IMPRESSION: 1. Negative for intracranial hemorrhage. 2. Severe diffuse ventricular dilation with suspected absence and/or atrophy of the corpus callosum, please correlate clinically and consider further evaluation with an MRI.
[2024-07-22 23:45] VITALS: BP 168/92; PULSE 109; TEMP 36.4; O2SAT 98
--- NOTE | 2024-07-23 01:41 | W.ED.HEATRA ---
HPI - Head Injury General: Chief complaint: Head Injury Stated complaint: Hitting head against door and floor Time Seen by Provider: 07/23/24 01:39 History of Present Illness: 23-year-old man who presents emergency room for evaluation from care home after he hit his head multiple times on the door and floor. He has several palsy. He sometimes displays these behaviors. He has a policy of the place where he came from to have him evaluated. No loss of consciousness. He appears to be at his baseline according to family. Related Data Home Medications ?Medication ?Instructions ?Recorded ?Confirmed buspirone 15 mg tablet 15 mg PO BID 03/14/20 03/14/20 calcium 250 mg (phosphate)-vit D3 600 tab PO BID 03/14/20 03/14/20 8.75 mcg (350 unit) chewable tablet (Calcium Adult) divalproex 250 mg tablet,delayed 250 mg PO BEDTIME 03/14/20 03/14/20 release divalproex 500 mg tablet,delayed 500 mg PO BID 03/14/20 03/14/20 release docusate sodium 100 mg capsule 100 mg PO BID 03/14/20 03/14/20 (DOK) levothyroxine 50 mcg tablet 50 mcg PO DAILY 03/14/20 03/14/20 melatonin 3 mg tablet 12 mg PO BEDTIME 03/14/20 03/14/20 polyethylene glycol 3350 17 17 g PO DAILY 03/14/20 03/14/20 gram/dose oral powder quetiapine 100 mg tablet 100 mg PO TID 03/14/20 03/14/20 Previous Rx's ?Medication ?Instructions ?Recorded blood sugar diagnostic (Contour #10 ea 03/16/20 Test Strips) insulin aspart U-100 100 unit/mL 0 unit (0 mL) SUBCUT WM&BEDTIME #5 03/16/20 subcutaneous solution (Novolog mL U-100 Insulin aspart) insulin glargine 100 unit/mL 12 unit (0.12 mL) SUBCUT DAILY #30 03/16/20 subcutaneous solution (Lantus mL U-100 Insulin) Allergies Allergy/AdvReac Type Severity Reaction Status Date / Time No Known Allergies Allergy Verified 03/14/20 00:40 Review of Systems General: Reports: ROS unobtainable due to medical condition PFS ED PFSH: Medical History Cerebral palsy Seizure disorder Severe mental handicap Wheelchair bound Surgical History History of tonsillectomy and adenoidectomy Family History (Updated 03/14/20 @ 03:35 by Rosales Lawrence MD) Mother Diabetes Type I Social History Second hand smoke exposure: No Alcohol intake: never Substance/Drug Use: never Adopted: No Caregiver/support person: Yes Lives independently: No Household members: other Housing: Assisted Living Facility Physical Exam Narrative: EXAM NARRATIVE: General: Alert, no acute distress. Skin: warm and dry Head: Normocephalic Neck: Trachea midline Eye: Extraocular movements are intact. Ears, nose, mouth and throat: Oral mucosa moist Respiratory: Respirations are non-labored Musculoskeletal: Normal ROM Gastrointestinal: Abdomen does not appear distended Neurological: Alert sitting in the chair. He is vocalizing and family says this is baseline. Psychiatric: Unable to assess Course Vital Signs: Vital signs: Vital Signs Temperature 97.6 F 07/22/24 23:45 Pulse Rate 109 H 07/22/24 23:45 Respiratory Rate 16 07/22/24 21:48 Blood Pressure 168/92 07/22/24 23:45 Pulse Oximetry 98 07/22/24 23:45 Oxygen Delivery Me thod Room Air 07/22/24 23:45 MDM - Head Injury Medcial Decision Making CT head: Severe diffuse ventricular dilatation and suspicion of absence of atrophy of the corpus callosum. Patient has known several palsy so this is chronic. No acute intracranial process. no intracranial hemorrhage, no evidence of infarct. no evidence of acute fracture.This was reviewed and interpreted by myself the ER physician. Assessment and plan: Head injury - Discharged home - Discussed plan with patient. Answered any questions. - Evaluation and treatment of this problem were appropriate in the emergency setting. Lab Data Radiology Impressions Head CT 07/22/24 23:01 IMPRESSION: 1. Negative for intracranial hemorrhage. 2. Severe diffuse ventricular dilation with suspected absence and/or atrophy of the corpus callosum, please correlate clinically and consider further evaluation with an MRI. Laboratory Results POC Glucose 105 mg/dL (70-110) 07/22/24 22:05 All radiology interpretation(s) finalized by discharge Discharge Plan Discharge Patient Disposition: Home Clinical Impression: Closed head injury Condition: Stable Prescriptions: No Action buspirone 15 mg tablet 15 mg PO BID Calcium Adult (calcium phos) 250 mg-8.75 mcg (350 unit) tablet,chewable 600 tab PO BID divalproex 250 mg tablet,delayed release (DR/EC) 250 mg PO BEDTIME divalproex 500 mg tablet,delayed release (DR/EC) 500 mg PO BID DOK 100 mg capsule 100 mg PO BID levothyroxine 50 mcg tablet 50 mcg PO DAILY melatonin 3 mg tablet 12 mg PO BEDTIME polyethylene glycol 3350 17 gram/dose powder 17 g PO DAILY quetiapine 100 mg tablet 100 mg PO TID Lantus U-100 Insulin 100 unit/mL Solution 12 unit SUBCUT DAILY Qty: 30 1RF (DME) Contour Test Strips Strip See Rx Instructions .ROUTE .MEDSUPPLY Qty: 10 0RF Rx Instructions: As directed Novolog U-100 Insulin aspart 100 unit/mL Solution 0 unit SUBCUT WM&BEDTIME Qty: 5 1RF Discharge Orders: Discharge ED (Routine); Ordered 07/23/24 Ordered By: Sonali Francisco Referrals: Maria E Hicks DO [Primary Care Provider, Family Practice] Discharge Diet: Usual diet Discharge Activity: Resume usual activity Patient Instructions: Opioid Safety, Pain Management Activity Restrictions/Additional Instructions: Thank you for choosing [facility] for your healthcare needs today. You have been screened and evaluated and felt safe for discharge. Health conditions do change or evolve sometimes and as such it is important that you follow up with your Primary Doctor to be re checked, 3-5 days is a general good time frame for follow up. You are always welcome to return to the ED for re assessment if your symptoms are worsening or you have new concerns Print Language: Azeri Coding Level of Care Code ED Afternoon Nanny for [facility]
[2024-07-23 02:00] VITALS: BP 165/100; PULSE 116; RESP 18; O2SAT 98
== END 2024-07-23 02:02 | disposition home or self-care (01) ==
PROVIDERS: Emergency Provider Emergency Medicine; PCP Family Medicine
DX: S09.8XXA Other specified injuries of head, initial encounter (principal); W22.8XXA Striking against or struck by other objects, initial encounter
CPT/HCPCS: 36416; 70450; 82962; 99284

== ENCOUNTER 2024-12-27 13:39 | Emergency (ER) | payer MEDICAID, SELFPAY ==
[2024-12-27] VITALS (7 sets, daily range): BP systolic 140–147; BP diastolic 92–104; PULSE 105–140; RESP 16–20; O2SAT 90–100
--- OUTSIDE RECORDS SUMMARY | 2024-12-27 13:50 | XMS_ITS | Clinical Summary ---
Author Organization [facility] Address [address] [place] [address] Care Team Providers Care Aviation [employer] Intelligence Name Role Phone Maria E Hicks Primary Care Provider [phone] Allergies No known active allergies Medications divalproex (DEPAKOTE) 250 mg Delayed Release tablet Take 1 Tablet (250 mg) by mouth daily at bedtime. 0 10/18/19 20 Active diaper,brief,cheyanne lt,disposable (Adult Briefs - Large)Indication s:Incontinence overflow, urine,Urinary incontinence without sensory awareness,Psycho genic fecal incontinence Adult large- tape not pull up 300 Each 11 01/18/20 21 Active hydrOXYzine HCL (ATARAX) 50 mg tablet TAKE ONE TABLET BY MOUTH THREE TIMES DAILY NEEDED ANXIETY 90 Tablet 2 03/05/19 22 Active OTHERIndications :Cerebral palsy, quadriplegic (CMS/HCC),Holopr osencephaly (CMS/HCC) Please order a medial thigh support for the patient's wheelchair. [facility] 1 Each 07/14/19 22 Active clonazePAM 0.5 mg tablet Take 0.5 mg by mouth 2 times daily as needed for Anxiety. Active OTHERIndications :Holoprosencepha ly (CMS/HCC),Cerebr al palsy, quadriplegic (CMS/HCC) Please provide wheelchair and thigh support repairs and parts as needed. [facility] [phone] 1 Each 04/04/19 23 Active traZODone (DESYREL) 50 mg tablet Take 1 Tablet (50 mg) by mouth daily at bedtime. 90 Tablet 4 03/03/19 24 Active neomycin-bacitra peewee-polymyxin (Triple Antibiotic) 3.5mg-400 unit- 5,000 unit/gram Ointment Apply to affected area 2 times daily. 05/26/19 24 Active melatonin 3 mg Tablet take 4 tablets by mouth at bedtime 120 Tablet 3 10/17/19 24 Active alcohol Pads, MedicatedIndicat ions:Type 1 diabetes mellitus without complication Use daily to monitor blood sugar level. 100 Each 3 02/13/19 25 Active lancetsIndicatio ns:Type 1 diabetes mellitus without complication Use to check blood sugar daily as needed 100 Each 3 02/13/19 25 Active Blood-Glucose MeterIndications :Type 1 diabetes mellitus without complication Use to check blood sugar daily as needed 1 Each 02/13/19 25 Active polyethylene glycol 3350 (MIRALAX) 17 gram/dose PowderIndication s:Chronic constipation FILL CAP TO LINE (17 GRAMS), MIX IN 8 OUNCES OF LIQUID AND DRINK BY MOUTH ONCE DAILY 510 Gram 03/25/19 25 Active docusate sodium (COLACE) 100 mg capsuleIndicatio ns:Constipation, unspecified constipation type TAKE ONE CAPSULE BY MOUTH TWICE DAILY 180 Capsule 3 03/29/19 25 Active Triple Antibiotic 3.5mg-400 unit- 5,000 unit/gram Ointment Apply to affected area 2 times daily as needed (for minor skin scrapes and injury). 28 Gram 2 04/04/19 25 Active multivit with min #[id number] (DEKAs Plus, folic acid,) 200 mcg-1,000 mcg-10 mg Capsule Take 1 Capsule by mouth daily. 100 Capsule 05/25/19 25 Active mupirocin calcium (BACTROBAN) 2 % CreamIndications :Infected abrasion of skin of right elbow Apply to affected area 2 times daily. 15 Gram 2 05/28/19 25 Active levothyroxine 50 mcg tablet TAKE ONE TABLET BY MOUTH EVERY MORNING 90 Tablet 2 06/06/19 25 Active busPIRone (BUSPAR) 10 mg tabletIndication s:Generalized anxiety disorder,Agitati on take two tablets by mouth three times daily 540 Tablet 5 07/15/19 25 Active amitriptyline (ELAVIL) 25 mg tablet Take 25 mg by mouth daily at bedtime. 06/06/19 25 Active Blood Pressure Monitor KitIndications:E levated blood pressure reading without diagnosis of hypertension One blood pressure machine kit. Fit for size 1 Each 07/30/19 25 Active Miscellaneous Medical SupplyIndication s:Elevated blood pressure reading without diagnosis of hypertension Start checking blood pressure three times per week, Monday morning (around 9am), afternoon (around 3pm), and Monday morning (around 9am) 1 Each 07/30/19 25 Active QUEtiapine (SEROquel) 300 mg tablet Take 300 mg by mouth 2 times daily. 09/17/19 25 Active blood sugar diagnostic StripIndications :Type 1 diabetes mellitus without complication Use to check blood sugar daily as needed 100 Each 3 09/20/19 25 Active magnesium HYDROXIDE (milk of magnesia) 400 mg/5 mL suspension TAKE 30ML BY MOUTH IF NO BOWEL MOVEMENT AFTER 3 DAYS 300 mL 2 10/11/19 25 Active ibuprofen (MOTRIN) 800 mg tabletIndication s:Acute pain of right knee TAKE ONE TABLET BY MOUTH THREE TIMES DAILY NEEDED FOR moderate pain. Take with food 90 Tablet 2 10/11/19 25 Active acetaminophen (TYLENOL) 325 mg tabletIndication s:Chronic knee pain, unspecified laterality TAKE 2 TABLETS BY MOUTH EVERY 4 HOURS NEEDED FOR PAIN 120 Tablet 6 10/11/19 25 Active divalproex (DEPAKOTE) 500 mg delayed release tablet TAKE ONE TABLET BY MOUTH TWICE DAILY 180 Tablet 4 12/13/19 25 Active divalproex (DEPAKOTE) 500 mg delayed release tablet TAKE ONE TABLET BY MOUTH TWICE DAILY 180 Tablet 1 07/16/19 25 025 Discontinued Active Problems Problem Noted Date Diagnosed Date Primary insomnia 05/01/2022 Type 1 diabetes mellitus without complication Hypertriglyceridemia 02/11/2022 Chronic constipation 02/07/2021 Frailty 07/30/2020 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 Intellectual disability 12/27/2017 Primary hypothyroidism 12/27/2017 Active autistic disorder 12/27/2017 Bowel and bladder incontinence 08/18/2015 Cerebral palsy, quadriplegic 03/29/2013 Seizure disorder 11/29/2012 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 Generalized anxiety disorder 05/27/2008 Resolved Problems Problem Noted Date Diagnosed Date Resolved Date Type 2 diabetes mellitus wit hout complication, without long-term current use of insulin 10/11/2020 02/14/2024 Type 1 diabetes mellitus with hyperglycemia 07/30/2020 02/14/2024 Normal routine physical examination 09/05/2018 09/05/2018 Hematuria 11/29/2012 05/27/2014 Fever of undetermined origin 11/29/2012 05/27/2014 Campylobacter diarrhea 05/05/201111/29 Dehydration 05/05/2011 05/27/2014 Balanitis 12/28/2010 03/29/2011 Redundant prepuce and phimosis 12/28/2010 03/29/2011 Bilateral undescended testicles 12/16/2008 03/29/2011 Infantile cerebral palsy, unspecified 03/29/2013 Encounters Date Type Department Care Team Description 12/24/2024 External Device Data [facility] ABSTRACTION Provider, Abstract [facility] [address] [facility] [place] [address] Maria E Hicks DO 11/29/2024 10:00 AM CDT Clinical Support [facility] [address] [facility] [place] [address] Need for influenza vaccination (Primary Dx) 10/11/2024 [facility] [address] [facility] [place] [address] Maria E Hicks DO 10/10/2024 [facility] [address] [facility] [place] [address] Ruhtie Newman, SHIPPING ASSOCIATE Chronic knee pain, unspecified laterality 10/10/2024 Refill [facility] [address] [facility] [place] [address] Maria E Hicks, Acute pain of right knee from Last 3 Months Immunizations Immunization Administration Dates Next Due (HAVRIX/VAQTA)(12 MO-18 YRS) HEPATITIS A VACCINE 0.5 ML PED/ADOL 2 DOSE, IM 09/05/2018,08/25/2016 (INFANRIX)(6 WKS-6 YRS) DIPT HERIA, TETANUS TOXOIDS, AND ACCELLULAR PERTUSSIS VACCINE (DTAP), 0.5 ML IM 08/07/2006,06/06/2002,05/31/2001,03/13,01/01/2001 (IPOL)(6 WKS AND UP) POLIOVI SURYA VACCINE, INACTIVATED (IPV), 3 DOSE, SUBCUT OR IM 08/07/2006,11/29/2001,03/13/2001,01/01 (M-M-R II/PRIORIX)(12 MO UP) MEASLES, MUMPS AND RUBELLA VIRUS VACCINE, 0.5 ML IM/SUBCUT 08/07/2006,11/29/2001 (PNEUMOVAX 23)(50 YRS UP) PN EUMOCOCCAL POLYSACCHARIDE (PPV23) 0.5 ML, IM 12/11/2018,11/29/2010 (VARIVAX)(12 MOS UP)VARICELL A VIRUS VACCINE (PF) 0.5 ML, SUB CUT 01/25/2002 HIB, Unspecified Formulation 01/25/2002, 05/31/2001,03/13/2001,01/01 Hepatitis B Vaccine 11/29/2001,01/01/2001,2000 INFLUENZA VACCINE QUADRIVALE NT 3 YR UP PF IM 11/25/2016 INFLUENZA VACCINE QUADRIVALE NT 6 MOS UP PF IM 11/07/2022,10/19/2021,11/06/2020,11/07 INFLUENZA VACCINE TRIVALENT SPLIT VIRUS, (6 MOS UP), 0.5ML (PF), IM 11/29/2024,11/13/2023 Influenza Seasonal Unspecifi ed Formulation IM 03/14/2002,01/25/2002 Influenza Vaccine Quad Split 3+ Yrs IM VFC 12/02/2013 Influenza Vaccine Quad Split 3+ Yrs Im 9,12/07/2017 Influenza Vaccine Quad Split 3+ Yrs PF IM VFC 12/04/2015,11/06/2014 Influenza Vaccine Split 3+ Yrs IM 11/14/2011 Influenza Vaccine Split 3+ Yrs IM VFC 12/25/2012 ,11/29/2010 Meningococcal A Conjugate Va ccine IM VFC 08/17/2012 Meningococcal A Conjugate Vaccine IM 08/25/2016 Pneumococcal conjugate, unsp ecified formulation 01/25/2002,03/13/2001 Skin Test TB 02/26/2024, 3,06/29/2021,06/24,07/17/2019 Tdap Vaccine > 7 Yo IM VFC 09/03/2014,08/17/2012 Varicella Vaccine Live Sq VFC 08/12/2011 Family History Medical History Relation Name Comments Heart Disease Father Heladio Farley Other Maternal Grandfather Sita unknown Healthy Maternal Grandmother Healthy Mother Colon Cancer Paternal Grandfather Mr. Farley Lung Cancer Paternal Grandfather Mr. Farley Healthy Paternal Grandmother Breast Cancer Neg Hx Relation Name Status Comments Father Heladio Farley Alive Maternal Grandfather Sita Alive Maternal Grandmother Alive Mother Alive Paternal Grandfather Mr. 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 Gender Identity Not on file Sexual Orientation Not on file Last Filed Vital Signs Vital Sign Reading Time Taken Comments Blood Pressure 122/68 09/19/2024 2:37 PM CDT Pulse 98 09/19/2024 2:37 PM CDT Temperature 36.8 C (98.2 F) 09/19/2024 2:37 PM CDT Respiratory Rate 18 07/29/2024 1:54 PM CDT Oxygen Saturation 96% 09/19/2024 2:37 PM CDT Inhaled Oxygen Concentration - - Weight 69.9 kg (154 lb) 09/19/2024 2:37 PM CDT s tated Height 170.2 cm (5' 7 ) 09/19/2024 2:37 PM CDT s tated Body Mass Index 24.12 09/19/2024 2:37 PM CDT Plan of Treatment Upcoming Encounters Date Type Department Care Team (Late st Contact Info) Description 03/20/2025 10:40 AM POWER CHISEL OPERATOR Office Visit [facility] [place] [address] [place] [phone] Maria E Hicks, DO [address] [place] [phone] Health Maintenance Due Date Last Done Comments HPV VACCINES (1 - Male 3-dos e series) 10/25/2015 DIABETES ANNUAL RETINAL EXAM 2018 DIABETES MICROALBUMIN ANNUAL SCREEN 2018 DIABETES ANNUAL FOOT EXAM 01/13/2022 01/13/2021 DTAP/TDAP/TD VACCINES (8 - T d or Tdap) 09/03/2024 09/03/2014, 08/17/2012, 08/07/2006, Additional history exists DIABETES HBA1C Q 6 MONTHS 01/16/20252024, 02/14/2024, 05/10/2023, Additional history exists DIABETES: A1C (Auto Order) 07/17/202507/17, 02/14/2024, 05/10/2023, Additional history exists LDL CHOLESTEROL ANNUAL 07/17/2025 , 02/14/2024, 05/10/2023, Additional history exists Preventative Visit-Managed Medicaid 07/18/2025 07/17/2024, 07/27/2023, 09/04/2020 HEPATITIS B VACCINES Completed 11/29/2001, 01/01/2001, 01/01/2001, Additional history exists INFLUENZA VACCINE Completed 11/29/2024, , 11/07/2022, Additional history exists Procedures Procedure Name Priority Date/Time Associated Diagnosis Comments LIPID PANEL Routine 07/17/2024 11:31 AM CDT Normal routine physical examination Type 1 diabetes mellitus without complication (CMS/HCC) Hypertriglyceridemia Primary hypothyroidism HEMOGLOBIN A1C Routine 07/17/2024 11:31 AM CDT Normal routine physical examination Type 1 diabetes mellitus without complication (CMS/HCC) from Last 3 Months or Most Recently Relevant to Health Maintenance Results * HEMOGLOBIN A1C (07/17/2024 11:31 AM CDT) HEMOGLOBIN A1C 5.6 <5.7 % [facility] Comment: For the purpose of screening for the presence of diabetes: <5.7% Consistent with the absence of diabetes 5.7-6.4% Consistent with increased risk for diabetes (prediabetes) > or =6.5% Consistent with diabetes This assay result is consistent with a decreased risk of diabetes. Currently, no consensus exists regarding use of hemoglobin A1c for diagnosis of diabetes in children. According to [place] Diabetes Association (ADA) guidelines, hemoglobin A1c <7.0% represents optimal control in non- diabetic patients. Different metrics may apply to specific patient populations. Standards of Medical Care in Diabetes(ADA). ESTIMATED AVERAGE GLUCOSE (MG/DL) 114 mg/dL [facility] ESTIMATED AVERAGE GLUCOSE (MMOL/L) 6.3 mmol/L [facility] Comment: Test Performed at: [facility] [address] [place] [address] Charley Cm MD Blood 07/17/2024 11:3 1 AM CDT 07/18/2024 3:57 AM CDT Aldoatilio Isra Newman SHIPPING ASSOCIATE CHEMISTRY ORDERABLES Final Result [facility] [phone] [place] [phone] * (ABNORMAL) LIPID PANEL (07/17/2024 11:31 AM CDT) CHOLESTEROL 137 <200 mg/dL [facility] HDL 39(L) > OR = 40 mg/dL [facility] TRIGLYCERIDE 191(H) <150 mg/dL [facility] LDL CALCULATED 72 mg/dL (calc) [facility] Comment: Reference range: <100 Desirable range <100 mg/dL for primary prevention; <70 mg/dL for patients with CHD or diabetic patients with > or = 2 CHD risk factors. LDL-C is now calculated using the Arvind calculation, which is a validated novel method providing better accuracy than the Friedewald equation in the estimation of LDL-C. Jonah LUNDBERG et al. JOHN. 2013;310(96): 6492-9973 (http://education.Intellistream/faq/HUU571) CHOL/HDL RATIO 3.5 <5.0 (calc) [facility] NON-HDL CHOLESTEROL 98 <130 mg/dL (calc) [facility] Comment: For patients with diabetes plus 1 major ASCVD risk factor, treating to a non-HDL-C goal of <100 mg/dL (LDL-C of <70 mg/dL) is considered a therapeutic option. Test Performed at: [facility] [address] [facility] [place] [address] Charley Cm MD Blood 07/17/2024 11:3 1 AM CDT 07/18/2024 3:57 AM CDT Aldokaylanyasmine Newman SHIPPING ASSOCIATE CHEMISTRY ORDERABLES Final Result Performing Organization Address City/State/[facility] Co de Phone Number [facility] [phone] [facility] [address] [place] [address] from Last 3 Months or Most Recently Relevant to Health Maintenance Insurance MEDICAID [place] * Guarantor: GEREMIAS GARDUNO Account Type Relation to Patient Date of Phone Billing Address Personal/Family [address] [place] [address] [employer] Medicaid Care Teams [employer] Relationship Specialty Start Date End Date Maria E Hicks DO [address] [place] [address] PCP - General Family Practice 06/22/10
--- OUTSIDE RECORDS SUMMARY | 2024-12-27 13:50 | XMS_ITS | Encounter Summary ---
Author Organization [facility] Address [address] [place] [address] Care Team Providers Care Associate Director Data & Analytics Name Role Phone Maria E Hicks DO Primary Care Provider [phone] Encounter Details Date Type Department Care Team (Late Contact Info) Description 12/24/2024 External Device Data [facility] ABSTRACTION Provider, Abstract NO ADDRESS ON FILE Social History Tobacco Use Types Packs/Day Years Used Date Smoking Tobacco: Never Passive Smoke Exposure: Never Smokeless Tobacco: Never Alcohol Use Standard Drinks/Week Comments No 0 (1 standard drink = 0.6 oz pur e alcohol) Sex and Gender Information Value Date Recorded Sex Assigned at Not on file 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 Gender Identity Not on file Sexual Orientation Not on file documented as of this encounter Plan of Treatment Upcoming Encounters Date Type Department Care Team (Late Contact Info) Description 03/20/2025 10:40 AM CUSTOMER SALES ADVISOR Office Visit [facility] [place] [address] [place] [address] Maria E Hicks DO [address] [place] [address] documented as of this encounter Visit Diagnoses Not on filedocumented in this encounter Care Teams Associate Director Data & Analytics Relationship Specialty Start Date End Date Maria E Hicks DO [address] [place] [address] PCP - General Family Practice 06/22/10 documented as of this encounter
--- NOTE | 2024-12-27 13:54 | US_ITS ---
WS: [id number] SCROTAL ULTRASOUND EXAMINATION CLINICAL INFORMATION: trauma; multiple laceration COMPARISON: None. FINDINGS: TESTES Normal in size and echotexture, without focal lesion. Color Doppler: Normal color Doppler flow pattern. Right testes size: 3.3 cm x 2.6 cm x 1.7 cm. Left testes size: 2.6 cm x 1.9 cm x 1.7 cm. EPIDIDYMIDES Not well visualized. OTHER FINDINGS Multiple scrotal lacerations with skin thickening and edema US/US scrotum [id number] IMPRESSION: 1. Normal bilateral testicular flow. 2. Multiple scrotal lacerations. 3. Epididymis not visualized bilaterally.
--- NOTE | 2024-12-27 13:55 | W.ED.MALEGU ---
Documented by User: GEORGINA Bauer 12/27/24 16:20 HPI - Male Genitourinary General: Chief complaint: Wound/Laceration Stated complaint: skin tear Time Seen by Provider: 12/27/24 13:42 Source: other (caregiver) Mode of arrival: EMS Limitations: altered mental status (severe cerebral palsy/nonverbal) History of Present Illness: Patient is a 24-year-old male who presents to ED today from [facility] along with his caregiver for concerns regarding scrotal injury. Patient has severe cerebral palsy and is nonverbal. He wears an adult briefs. Care staff states he has changed patient multiple times this morning and scrotum was without injury then. He states the patient had gotten upset regarding something and had went to his room. Care staff states he went downstairs to fix food and when he went back upstairs to check on the patient, he noticed a large amount of blood and found it was coming from his scrotum. There is reportedly multiple lacerations to his scrotum-presumedly self induced-care staff he was trying to remove his adult brief. No other injuries noted. MD Complaint: testicle pain and other (Scrotal laceration) Onset (ago): hour(s) Location: right testicle and left testicle Associated symptoms: Reports no associated symptoms Related Data Home Medications ?Medication ?Instructions ?Recorded ?Confirmed buspirone 15 mg tablet 15 mg PO BID 03/14/20 12/27/24 divalproex 250 mg tablet,delayed 250 mg PO BEDTIME 03/14/20 12/27/24 release divalproex 500 mg tablet,delayed 500 mg PO BID 03/14/20 12/27/24 release levothyroxine 50 mcg tablet 50 mcg PO DAILY 03/14/20 12/27/24 melatonin 3 mg tablet 12 mg PO BEDTIME 03/14/20 12/27/24 polyethylene glycol 3350 17 17 g PO DAILY 03/14/20 12/27/24 gram/dose oral powder quetiapine 100 mg tablet 100 mg PO TID 03/14/20 12/27/24 calcium carbonate (Calcium 600) 600 mg PO BID 12/27/24 12/27/24 docusate sodium 100 mg capsule 100 mg PO BID 12/27/24 12/27/24 (Colace) Previous Rx's ?Medication ?Instructions ?Recorded blood sugar diagnostic (Contour #10 ea 03/16/20 Test Strips) insulin aspart U-100 100 unit/mL 0 unit (0 mL) SUBCUT WM&BEDTIME #5 03/16/20 subcutaneous solution (Novolog mL U-100 Insulin aspart) insulin glargine 100 unit/mL 12 unit (0.12 mL) SUBCUT DAILY #30 03/16/20 subcutaneous solution (Lantus mL U-100 Insulin) cephalexin 500 mg capsule 500 mg PO Q6H 7 days #28 caps 12/27/24 hydrocodone 5 mg-acetaminophen 325 1 tab PO Q6H PRN pain #10 tabs 12/27/24 mg tablet Allergies Allergy/AdvReac Type Severity Reaction Status Date / Time No Known Allergies Allergy Verified 03/14/20 00:40 Review of Systems General: Reports: ROS unobtainable due to mental status (pt with severe MR/cerebral palsy-non verbal) PFSH ED PFSH: Medical History Severe mental handicap Seizure disorder Wheelchair bound Cerebral palsy Surgical History History of tonsillectomy and adenoidectomy Family History Mother Diabetes Type I Social History Second hand smoke exposure: No Alcohol intake: never Substance/Drug Use: never Adopted: No Caregiver/support person: Yes Lives independently: No Household members: other Housing: Assisted Living Facility Physical Exam Const: GENERAL APPEARANCE: cooperative OTHER: at mental baseline; severe cerebral palsy Resp: COMMON NORMALS: normal respiratory effort and clear to auscultation bilaterally AUSCULTATION: clear to auscultation bilaterally Cardio: COMMON NORMALS: regular rhythm RATE: tachycardic RHYTHM: regular rhythm GI: COMMON NORMALS: Normal to inspection, nondistended, normoactive bowel sounds present, Soft to palpation and non-tender PALPATION: Yes Soft to palpation : COMMON NORMALS: Yes no CVA tenderness BLADDER/KIDNEY EXAM: Yes no CVA tenderness PENIS: normal penis MEATUS: meatus normal SCROTUM: Yes Scrotal tenderness present and Yes other (see below; multiple scrotal lacerations present) OTHER: Back/Pelvis: COMMON NORMALS: no CVA tenderness Skin: TRAUMA: laceration Procedures Laceration Laceration 1: Site: scrotum Size (cm): 5.0 Description: irregular Depth: simple, single layer Local Anesthetic: lidocaine 2% Amount of anesthesia used (mL): 2.0 Pre-repair: wound explored and irrigated extensively Skin layer closed with: nylon Size (cm): 4-0 Number of sutures: 9 Technique: running Laceration 2: Site: scrotum Size (cm): 4.0 Description: irregular Depth: simple, single layer Local Anesthetic: lidocaine 2% Amount of anesthesia used (mL): 2.0 Pre-repair: wound explored and irrigated extensively Skin layer closed with: nylon Size (cm): 4-0 Number of sutures: 6 Technique: running Laceration 3: Site: scrotum Size (cm): 1.5 Description: linear Depth: simple, single layer Local Anesthetic: lidocaine 2% Amount of anesthesia used (mL): 1.0 Pre-repair: wound explored and irrigated extensively Skin layer closed with: nylon Size (cm): 4-0 Number of sutures: 3 Technique: running Course Vital Signs: Vital signs: Vital Signs Pulse Rate 105 H 12/27/24 17:17 Respiratory Rate 16 12/27/24 17:17 Blood Pressure 140/95 12/27/24 17:17 Pulse Oximetry 99 12/27/24 17:17 Oxygen Delivery Me thod Room Air 12/27/24 16:31 MDM - Male Medical Decision Making Patient is a 24-year-old male with severe cerebral palsy/nonverbal from [facility] here after staff states he has self-induced scrotal lacerations from him tugging and trying to remove his adult brief. Patient was found to have multiple scrotal lacerations. These were also evaluated along with Dr. Fernandez. These were felt to be superficial enough to repair here in the emergency department. US imaging was obtained. Lacerations were copiously irrigated and repaired as documented. Conscious sedation was needed to perform the procedure. Please refer to Dr. Fernandez's note for conscious sedation portion of exam. Patient was given IV Ancef prior to discharge and will place him on prophylactic antibiotics. Wound care/infection precautions discussed with care staff/family. Suture removal instructions/time frame discussed. Medical Records I reviewed the patient's medical records. Lab Data I reviewed the patient's lab results. 12/27/24 13:56 12/27/24 13:56 Radiology Impressions Scrotum Ultrasound 12/27/24 13:54 IMPRESSION: 1. Normal bilateral testicular flow. 2. Multiple scrotal lacerations. 3. Epididymis not visualized bilaterally. Laboratory Results WBC 5.86 10^3/uL (3.29-11.43) 12/27/24 13:56 RBC 5.53 10^6/uL (3.85-5.65) 12/27/24 13:56 Hgb 16.50 g/dL (11.27-16.99) 12/27/24 13:56 Hct 48.3 % (37-53) 12/27/24 13:56 MCV 87.3 fl (82-101) 12/27/24 13:56 MCH 29.8 pg (27-33) 12/27/24 13:56 MCHC 34.2 g/dL (30-55) 12/27/24 13:56 RDW 12.9 % (12.1-15.1) 12/27/24 13:56 Plt Count 187 10^3/cmm (157-399) 12/27/24 13:56 MPV 10.7 fL (7.4-10.4) H 12/27/24 13:56 Neut % (Auto) 59.4 % 12/27/24 13:56 Lymph % (Auto) 33.1 % 12/27/24 13:56 Elk % (Auto) 5.8 % 12/27/24 13:56 Eos % (Auto) 0.9 % 12/27/24 13:56 Baso % (Auto) 0.5 % 12/27/24 13:56 Neut # (Auto) 3.48 10^3/uL (1.8-7.7) 12/27/24 13:56 Lymph # (Auto) 1.9 10^3/uL (0.8-4.8) 12/27/24 13:56 Elk # (Auto) 0.3 10^3/uL (0.2-0.9) 12/27/24 13:56 Eos # (Auto) 0.1 10^3/uL (0.0-0.8) 12/27/24 13:56 Baso # (Auto) 0.0 10^3/uL (0.0-0.1) 12/27/24 13:56 Nucleated RBC % (auto) 0 % 12/27/24 13:56 Nucleated RBCs # 0.0 /100WBC 12/27/24 13:56 Sodium 141 mmol/L (136-145) 12/27/24 13:56 Potassium 4.0 mmol/L (3.5-5.1) 12/27/24 13:56 Chloride 103 mmol/L (98-107) 12/27/24 13:56 Carbon Dioxide 23 mmol/L (22-29) 12/27/24 13:56 Anion Gap 19.0 (5-19) 12/27/24 13:56 BUN 9 mg/dL (6-20) 12/27/24 13:56 Creatinine 0.6 mg/dL (0.7-1.2) L 12/27/24 13:56 GFR Calculation 165.5 mL/min (90-130) H 12/27/24 13:56 Glucose 215 mg/dL (65-115) H 12/27/24 13:56 Calculated Osmolality 297 mOsm/kg (285-295) H 12/27/24 13:56 Calcium 9.7 mg/dL (8.5-10.5) 12/27/24 13:56 Total Bilirubin 0.3 mg/dL (0.15-1.2) 12/27/24 13:56 AST 21 U/L (0-40) 12/27/24 13:56 ALT 29 U/L (0-41) 12/27/24 13:56 Alkaline Phosphatase 67 U/L (40-130) 12/27/24 13:56 Total Protein 6.8 g/dL (6.6-8.7) 12/27/24 13:56 Albumin 4.7 g/dL (3.5-5.2) 12/27/24 13:56 Globulin 2.1 g/dL (1.3-4.6) 12/27/24 13:56 All radiology interpretation(s) finalized by discharge Discharge Plan Discharge Patient Disposition: Home Clinical Impression: Laceration of scrotum, complicated Qualifiers: Encounter type: initial encounter Qualified Code(s): S31.31XA - Laceration without foreign body of scrotum and testes, initial encounter Condition: Stable Prescriptions: New cephalexin 500 mg capsule 500 mg PO Q6H 7 Days Qty: 28 0RF hydrocodone-acetaminophen 5-325 mg tablet 1 tab PO Q6H PRN (Reason: pain) Qty: 10 0RF No Action buspirone 15 mg tablet 15 mg PO BID divalproex 250 mg tablet,delayed release (DR/EC) 250 mg PO BEDTIME divalproex 500 mg tablet,delayed release (DR/EC) 500 mg PO BID levothyroxine 50 mcg tablet 50 mcg PO DAILY melatonin 3 mg tablet 12 mg PO BEDTIME polyethylene glycol 3350 17 gram/dose powder 17 g PO DAILY quetiapine 100 mg tablet 100 mg PO TID insulin glargine [Lantus U-100 Insulin] 100 unit/mL Solution 12 unit SUBCUT DAILY Qty: 30 1RF (DME) Contour Test Strips Strip See Rx Instructions .ROUTE .MEDSUPPLY Qty: 10 0RF Rx Instructions: As directed insulin aspart U-100 [Novolog U-100 Insulin aspart] 100 unit/mL Solution 0 unit SUBCUT WM&BEDTIME Qty: 5 1RF calcium carbonate [Calcium 600] 600 mg calcium (1,500 mg) Tablet 600 mg PO BID docusate sodium [Colace] 100 mg Capsule 100 mg PO BID Discharge Orders: Discharge ED (Routine); Ordered 12/27/24 Ordered By: Molly Levin Referrals: Maria E Hicks DO [Primary Care Provider, Family Practice] Patient Instructions: Laceration (DC), Patient Portal & Angelito Instructions Activity Restrictions/Additional Instructions: Keep wound/laceration clean with warm soap and water twice daily. Monitor for signs of infection such as redness, swelling, increased pain, or drainage. Please seek medical re-evaluation if these occur. If you received sutures today these will need to be removed (unless you were told by the provider that they are absorbable). The provider should have discussed with you the length of time until removal-10 days. Fill your antibiotics immediately and start them to help prevent infection. You may use the prescribed pain medication if you (staff/family) feels he is having significant discomfort. You may apply ice to the scrotum (not directly onto skin-make sure there is a barrier such as a wash cloth) to help with pain. Print Language: Serbian Coding Level of Care Code ED [employer] Fwd Documented by User: Nahun Fernandez DO 01/01/25 04:36 HPI - Male Genitourinary General: Chief complaint: Wound/Laceration Stated complaint: skin tear Time Seen by Provider: 12/27/24 13:42 Related Data Home Medications ?Medication ?Instructions ?Recorded ?Confirmed buspirone 15 mg tablet 15 mg PO BID 03/14/20 12/27/24 divalproex 250 mg tablet,delayed 250 mg PO BEDTIME 03/14/20 12/27/24 release divalproex 500 mg tablet,delayed 500 mg PO BID 03/14/20 12/27/24 release levothyroxine 50 mcg tablet 50 mcg PO DAILY 03/14/20 12/27/24 melatonin 3 mg tablet 12 mg PO BEDTIME 03/14/20 12/27/24 polyethylene glycol 3350 17 17 g PO DAILY 03/14/20 12/27/24 gram/dose oral powder quetiapine 100 mg tablet 100 mg PO TID 03/14/20 12/27/24 calcium carbonate (Calcium 600) 600 mg PO BID 12/27/24 12/27/24 docusate sodium 100 mg capsule 100 mg PO BID 12/27/24 12/27/24 (Colace) Previous Rx's ?Medication ?Instructions ?Recorded blood sugar diagnostic (Contour #10 ea 03/16/20 Test Strips) insulin aspart U-100 100 unit/mL 0 unit (0 mL) SUBCUT WM&BEDTIME #5 03/16/20 subcutaneous solution (Novolog mL U-100 Insulin aspart) insulin glargine 100 unit/mL 12 unit (0.12 mL) SUBCUT DAILY #30 03/16/20 subcutaneous solution (Lantus mL U-100 Insulin) cephalexin 500 mg capsule 500 mg PO Q6H 7 days #28 caps 12/27/24 hydrocodone 5 mg-acetaminophen 325 1 tab PO Q6H PRN pain #10 tabs 12/27/24 mg tablet Allergies Allergy/AdvReac Type Severity Reaction Status Date / Time No Known Allergies Allergy Verified 03/14/20 00:40 [facility] ED PFSH: Medical History Severe mental handicap Seizure disorder Wheelchair bound Cerebral palsy Surgical History History of tonsillectomy and adenoidectomy Family History Mother Diabetes Type I Social History Second hand smoke exposure: No Alcohol intake: never Substance/Drug Use: never Adopted: No Caregiver/support person: Yes Lives independently: No Household members: other Housing: Assisted Living Facility Procedures Procedural Sedation Indication: laceration repair ASA Class: I Preparation: alarm security or surveillance monitor applied, pulse oximeter, supplemental O2 applied, suction/airway equipment at bedside and IV secured Ketamine: IV Ketamine dose (mg): 137 Complications: hypoxia Interventions: oxygen applied, airway repositioned and other (Nasopharyngeal airway inserted) Additional Comments: Patient tolerated well did require repositioning of airway and nasopharyngeal airway briefly. Course Vital Signs: Vital signs: Vital Signs Pulse Rate 105 H 12/27/24 17:17 Respiratory Rate 16 12/27/24 17:17 Blood Pressure 140/95 12/27/24 17:17 Pulse Oximetry 99 12/27/24 17:17 Oxygen Delivery Me thod Room Air 12/27/24 16:31 MDM - Male Medical Decision Making Patient is a 24-year-old male with severe cerebral palsy/nonverbal from [facility] here after staff states he has self-induced scrotal lacerations from him tugging and trying to remove his adult brief. Patient was found to have multiple scrotal lacerations. These were also evaluated along with Dr. Fernandez. These were felt to be superficial enough to repair here in the emergency department. US imaging was obtained. Lacerations were copiously irrigated and repaired as documented. Conscious sedation was needed to perform the procedure. Please refer to Dr. Fernandez's note for conscious sedation portion of exam. Patient was given IV Ancef prior to discharge and will place him on prophylactic antibiotics. Wound care/infection precautions discussed with care staff/family. Suture removal instructions/time frame discussed. Patient [facility] and [facility] Patient has had a long-term and he was brought in with her report of scrotal lacerations. The report was that they occurred when the patient ripped off his diaper. There is no evidence of bleeding or skin in the patient's nails Lab Data 12/27/24 13:56 12/27/24 13:56 Radiology Impressions Scrotum Ultrasound 12/27/24 13:54 IMPRESSION: 1. Normal bilateral testicular flow. 2. Multiple scrotal lacerations. 3. Epididymis not visualized bilaterally. Laboratory Results WBC 5.86 10^3/uL (3.29-11.43) 12/27/24 13:56 RBC 5.53 10^6/uL (3.85-5.65) 12/27/24 13:56 Hgb 16.50 g/dL (11.27-16.99) 12/27/24 13:56 Hct 48.3 % (37-53) 12/27/24 13:56 MCV 87.3 fl (82-101) 12/27/24 13:56 MCH 29.8 pg (27-33) 12/27/24 13:56 MCHC 34.2 g/dL (30-55) 12/27/24 13:56 RDW 12.9 % (12.1-15.1) 12/27/24 13:56 Plt Count 187 10^3/cmm (157-399) 12/27/24 13:56 MPV 10.7 fL (7.4-10.4) H 12/27/24 13:56 Neut % (Auto) 59.4 % 12/27/24 13:56 Lymph % (Auto) 33.1 % 12/27/24 13:56 Elk % (Auto) 5.8 % 12/27/24 13:56 Eos % (Auto) 0.9 % 12/27/24 13:56 Baso % (Auto) 0.5 % 12/27/24 13:56 Neut # (Auto) 3.48 10^3/uL (1.8-7.7) 12/27/24 13:56 Lymph # (Auto) 1.9 10^3/uL (0.8-4.8) 12/27/24 13:56 Elk # (Auto) 0.3 10^3/uL (0.2-0.9) 12/27/24 13:56 Eos # (Auto) 0.1 10^3/uL (0.0-0.8) 12/27/24 13:56 Baso # (Auto) 0.0 10^3/uL (0.0-0.1) 12/27/24 13:56 Nucleated RBC % (auto) 0 % 12/27/24 13:56 Nucleated RBCs # 0.0 /100WBC 12/27/24 13:56 Sodium 141 mmol/L (136-145) 12/27/24 13:56 Potassium 4.0 mmol/L (3.5-5.1) 12/27/24 13:56 Chloride 103 mmol/L (98-107) 12/27/24 13:56 Carbon Dioxide 23 mmol/L (22-29) 12/27/24 13:56 Anion Gap 19.0 (5-19) 12/27/24 13:56 BUN 9 mg/dL (6-20) 12/27/24 13:56 Creatinine 0.6 mg/dL (0.7-1.2) L 12/27/24 13:56 GFR Calculation 165.5 mL/min (90-130) H 12/27/24 13:56 Glucose 215 mg/dL (65-115) H 12/27/24 13:56 Calculated Osmolality 297 mOsm/kg (285-295) H 12/27/24 13:56 Calcium 9.7 mg/dL (8.5-10.5) 12/27/24 13:56 Total Bilirubin 0.3 mg/dL (0.15-1.2) 12/27/24 13:56 AST 21 U/L (0-40) 12/27/24 13:56 ALT 29 U/L (0-41) 12/27/24 13:56 Alkaline Phosphatase 67 U/L (40-130) 12/27/24 13:56 Total Protein 6.8 g/dL (6.6-8.7) 12/27/24 13:56 Albumin 4.7 g/dL (3.5-5.2) 12/27/24 13:56 Globulin 2.1 g/dL (1.3-4.6) 12/27/24 13:56 Discharge Plan Discharge Patient Disposition: Home Clinical Impression: Laceration of scrotum, complicated Qualifiers: Encounter type: initial encounter Qualified Code(s): S31.31XA - Laceration without foreign body of scrotum and testes, initial encounter Condition: Stable Prescriptions: New cephalexin 500 mg capsule 500 mg PO Q6H 7 Days Qty: 28 0RF hydrocodone-acetaminophen 5-325 mg tablet 1 tab PO Q6H PRN (Reason: pain) Qty: 10 0RF No Action buspirone 15 mg tablet 15 mg PO BID divalproex 250 mg tablet,delayed release (DR/EC) 250 mg PO BEDTIME divalproex 500 mg tablet,delayed release (DR/EC) 500 mg PO BID levothyroxine 50 mcg tablet 50 mcg PO DAILY melatonin 3 mg tablet 12 mg PO BEDTIME polyethylene glycol 3350 17 gram/dose powder 17 g PO DAILY quetiapine 100 mg tablet 100 mg PO TID insulin glargine [Lantus U-100 Insulin] 100 unit/mL Solution 12 unit SUBCUT DAILY Qty: 30 1RF (DME) Contour Test Strips Strip See Rx Instructions .ROUTE .MEDSUPPLY Qty: 10 0RF Rx Instructions: As directed insulin aspart U-100 [Novolog U-100 Insulin aspart] 100 unit/mL Solution 0 unit SUBCUT WM&BEDTIME Qty: 5 1RF calcium carbonate [Calcium 600] 600 mg calcium (1,500 mg) Tablet 600 mg PO BID docusate sodium [Colace] 100 mg Capsule 100 mg PO BID Discharge Orders: Discharge ED (Routine); Ordered 12/27/24 Ordered By: Molly Levin Referrals: Maria E Hicsk DO [Primary Care Provider, Family Practice] Patient Instructions: Laceration (DC), Patient Portal & [facility] Instructions Activity Restrictions/Additional Instructions: Keep wound/laceration clean with warm soap and water twice daily. Monitor for signs of infection such as redness, swelling, increased pain, or drainage. Please seek medical re-evaluation if these occur. If you received sutures today these will need to be removed (unless you were told by the provider that they are absorbable). The provider should have discussed with you the length of time until removal-10 days. Fill your antibiotics immediately and start them to help prevent infection. You may use the prescribed pain medication if you (staff/family) feels he is having significant discomfort. You may apply ice to the scrotum (not directly onto skin-make sure there is a barrier such as a wash cloth) to help with pain. Print Language: Serbian Coding Level of Care Code ED [employer]
[2024-12-27] MEDS: tetanus-dipt-pertussis 0.5 mL SDV IM (14:15)
[2024-12-27 14:17] LABS: Hematocrit 48.3 % (37-53); Hemoglobin 16.50 g/dL (11.27-16.99); Mean Corpuscular HGB Conc 34.2 g/dL (30-55); Mean Corpuscular Hemoglobin 29.8 pg (27-33); Mean Corpuscular Volume 87.3 fl (82-101); Nucleated Red Blood Cells % 0 %; Platelet Count 187 10^3/cmm (157-399); Red Blood Count 5.53 10^6/uL (3.85-5.65); White Blood Count 5.86 10^3/uL (3.29-11.43)
[2024-12-27] MEDS: ceFAZolin 2,000 mg SDV 2000 MG IVP (14:17)
[2024-12-27 14:34] LABS: Alanine Aminotransferase 29 U/L (0-41); Albumin Level 4.7 g/dL (3.5-5.2); Alkaline Phosphatase 67 U/L (40-130); Aspartate Amino Transferase 21 U/L (0-40); Blood Urea Nitrogen 9 mg/dL (6-20); Calcium 9.7 mg/dL (8.5-10.5); Carbon Dioxide 23 mmol/L (22-29); Chloride 103 mmol/L (98-107); Globulin 2.1 g/dL (1.3-4.6); Glucose 215 mg/dL (65-115); Osmolality Calculated 297 mOsm/kg (285-295); Sodium 141 mmol/L (136-145); Total Protein 6.8 g/dL (6.6-8.7)
[2024-12-27 14:36] LABS: Anion Gap 19.0 (5-19); Potassium 4.0 mmol/L (3.5-5.1)
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
[2024-12-27] MEDS: LORazepam 2 mg/mL INJ 1 mL 1 MG IVP (15:08)
[2024-12-27] MEDS: ketamine 100 mg/mL Inj 5 mL 137.4 MG IV (15:42)
--- NOTE | 2024-12-27 15:57 | PC.PHAR ---
Pt is from [facility] home-unable to get through to ask if pt had medications today.
[2024-12-27] MEDS: ondansetron 2 mg/ML SDV 2 mL 4 MG IVP (16:21)
[2024-12-27] MEDS: lidocaine 2% INJ 20 mL INJECTION (16:24)
--- NOTE | 2024-12-27 17:18 | PC.NURSE ---
stayed in room for conscious sedation until 1640. pt talking at this time with mother at bedside.
== END 2024-12-27 17:31 | disposition home or self-care (01) ==
PROVIDERS: Emergency Provider Physician Assistant; PCP Family Medicine
DX: S31.31XA Laceration without foreign body of scrotum and testes, initial encounter (principal); Z79.4 Long term (current) use of insulin; X58.XXXA Exposure to other specified factors, initial encounter
CPT/HCPCS: 12004; 36415; 76870; 80053; 85025; 90471; 90715; 96374; 96375; 99156; 99285; J0690; J2060; J2405; J3490; J9999